=== PATIENT | female | born 1985 | race Caucasian/White ===

== ENCOUNTER 2016-09-24 10:22 | Emergency (ER) | payer OTHER, SELFPAY ==
[~2016-09-24 10:22] MED LIST: ACET50TA PO; ALBU20IN NEB; ALBU83IN INH; ALBUPOW9 XX; BACT2OIN12; CEFT500T PO; CEPH25SS PO; CEPH2CAP PO; DIPH50CA PO; DOXY75CA3 PO; EPIP0.3I2 INJ; ERYT250C11 PO; HIBI4LIQ EXT; IBUP-1114 PO; IBUP80TA PO; MOTR200T44 PO; MUPI2OI EXT; No Home Meds; PEPC40SU PO; PERC5TAB6 PO; PRED20TA PO; PRED50TA PO; PRENTAB74 PO; PRENTAB8 PO; PRENTAB9 PO; PROA1AER INH; PROM125TA IV; STUATAB PO; TOPICAL CREAM TOP; TYLE167L PO; TYLE325T5 PO; albuterol HFA INH; benadryl PO; ceftin PO; nebulizer NEB; senokot PO; zofran PO
[2016-09-24 11:08] LABS: CONTROL LINE HCG INT CTR LINE PRESENT
[2016-09-24] MEDS ORDERED: ONDANSETRON 4MG/2ML VIAL (J2405) As Ordered ONE (11:17)
[2016-09-24] MEDS ORDERED: MORPHINE 4 MG/ML 1ML SYRINGE As Ordered ONE (11:17)
[2016-09-24] MEDS ORDERED: ISOVUE-370 76% 100ML VIAL (Q9967) As Ordered ONE (11:24)
--- NOTE | 2016-09-24 11:30 | REP ---
Chest x-ray: Two views. History: Chest pain. Comparison chest x-rays from February 15, 2013. Findings: EKG monitoring electrodes overlie the chest. The lungs are well inflated and clear. Pleural angles are sharp. Heart size is normal. Pulmonary vasculature is not increased. No significant bony abnormality is seen. Impression: No active disease. Signed by Leonides Schaeffer MD 09/24/2016 11:22 A
--- NOTE | 2016-09-24 12:16 | REP ---
CT PULMONARY ANGIOGRAM: With IV contrast. HISTORY: Pleuritic chest pain, elevated D-dimer COMPARISON STUDIES: Comparison chest x-ray from earlier on today's date. February 25, [address] is reviewed. Contrast dose: 75 mL of Isovue [address] TECHNIQUE: Helical scanning is acquired and overlapping 1.5 mm and contiguous 3 mm axial images are reformatted. In addition, a 3D work station is deployed to generate thick slab maximum intensity projection images in sagittal and coronal imaging projections. CT PULMONARY ANGIOGRAPHIC FINDINGS: There is good opacification of the pulmonary arterial tree and there is no CT evidence of pulmonary embolism. The thoracic aorta enhances homogeneously and is normal in caliber and course. No evidence of dissection or aneurysm is seen. No hilar or mediastinal mass or adenopathy is seen. No pleural or pericardial effusion is seen. The lung bagley are clear. Maximal intensity projection images show no vessel cutoff or filling defect to suggest pulmonary thrombus. No pulmonary mass lesion infiltrate or atelectasis is seen. There is marked diffuse fatty infiltration in the liver. No adrenal lesion is seen. The visualized upper abdominal structures are otherwise unremarkable. No bony destructive lesion is seen. IMPRESSION: No CT evidence of pulmonary embolism. Marked diffuse fatty infiltration of the liver. Otherwise negative CT pulmonary angiogram. Signed by Leonides Schaeffer MD 09/24/2016 02:27 P
--- NOTE | 2016-09-24 12:58 | EDDOCDS ---
Physician Documentation [facility] Name: Genesis Quintanilla Age: 30 yrs Sex: Female : 1985 Arrival Date: 09/24/2016 Time: 10:22 Bed 5 Private MD: NO PRIMARY PHYSICIAN, . Disposition: 09/24/16 12:46 Discharged to Home/Self Care. Impression: Other chest pain. - Condition is Stable. - Discharge Instructions: Angina Pectoris, Nonspecific Chest Pain, Chest Wall Pain, Costochondritis. - Prescriptions for [place] 5- 325 mg Oral Tablet - take 1 tablet by ORAL route every 6 hours As needed MDD: 4 tabs; 6 tablet. - Medication Reconciliation, Local Pharmacy Hours form. - Follow up: Center - [facility]; When: 2 - 3 days. - Problem is new. - Symptoms have improved. Historical: - Allergies: Bees (Anaphylaxis); Clindamycin (Rash); Erythromycin (Rash); Latex; Naproxen (Unknown); PENICILLINS (Rash); SULFA (SULFONAMIDES) (Swelling); - Home Meds: 1. cpap nightly 2. pro-air 2 puff twice a day 3. albuterol sulfate 2.5 mg /3 mL (0.083 %) Nebulizer nebu 3 mL 3 times per day as needed - PMHx: angioedema; Asthma; Depression; hearing loss; MRSA; Sleep Apnea w/ CPAP; - PSHx: none; - Social history: Smoking status: Patient states was never smoker of tobacco. No barriers to communication noted, The patient speaks fluent Yoruba. - Family history: Not pertinent. - : The pt / caregiver states he / she is not on anticoagulants. Home medication list is obtained from the patient. - Exposure Risk Screening:: None identified. 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 5 in. (165.10 cm) (R); Pain 6/10; 11:20 BP 119 / 70 (auto/); js13 11:20 Pulse 78 MON; Resp 14; Pulse Ox 98% ; js13 11:35 BP 114 / 57 (auto/); js13 11:35 Pulse 60 MON; Resp 14; Pulse Ox 99% on R/A; js13 11:41 Pain 2/10; js13 11:50 BP 108 / 52 (auto/); js13 11:50 Pulse 68 MON; Resp 14; Pulse Ox 95% on R/A; js13 12:05 BP 105 / 58 (auto/); js13 12:05 Pulse 68 MON; Resp 14; Pulse Ox 97% on R/A; js13 12:20 BP 107 / 55 (auto/); js13 12:20 Pulse 58 MON; Resp 14; Pulse Ox 95% on R/A; js13 12:35 BP 107 / 62 (auto/); js13 12:35 Pulse 66 MON; Resp 14; Pulse Ox 95% on R/A; js13 12:50 BP 134 / 83 (auto/); js13 12:50 Pulse 58 MON; Resp 14; Temp 97.2(O); Pulse Ox 97% on R/A; Pain 2/10; js13 10:34 Body Mass Index 38.27 (104.33 kg, 165.10 cm) dem1 MDM: 10:25 ECG WITH READING ER PHYS+CARDIAG ordered. EDMS 10:28 IV Saline Lock ordered. sd1 10:29 Chest, 2 View (pa\E\lat) Ordered. EDMS 10:29 D-Dimer Quant Ordered. EDMS 10:55 HCG,Serum Qualitative Ordered. EDMS 11:14 D-Dimer Quant Reviewed. sd1 11:14 HCG,Serum Qualitative Reviewed. sd1 11:15 morphine 4 mg IVP every 15 minutes; Document pain score/vitals after each dose (Hold if sd1 SBP < 90mmHg) x2 ordered. 11:15 Ondansetron 4 mg IVP once ordered. sd1 11:17 CT Chest Angio R/O PE Ordered. EDMS 11:45 Financial registration complete. mm15 11:47 [facility] [place] was [place] into [employer] and attached to record. mm15 12:35 [facility] [place] ordered. sd1 Administered Medications: 11:22 Drug: morphine 4 mg [morphine 4 mg/mL intravenous cartridge (1 mL)] Route: IVP; Site: js13 left antecubital; 11:41 Follow up: Pain 2/10 Adult; Response: Confirmed pt not driving.; Pain is decreased js13 11:22 Drug: Ondansetron 4 mg Route: IVP; Site: left antecubital; js13 11:45 Follow up: Response: Nausea is resolved js13 Signatures: Dispatcher [employer] EDAlia Diamnod MD MD sd1 Ban Nance RN RN js13 Yonas Duarte mm15 The chart was reviewed and I authenticate all verbal orders and agree with the evaluation and treatment provided.Attachments: 11:47 [facility] Payment Agreement mm15 MTDD
--- NOTE | 2016-09-24 12:58 | EDDOCDS ---
Nurse's Notes [facility] Name: Genesis Quintanilla Age: 30 yrs Sex: Female : 1985 Arrival Date: 09/24/2016 Time: 10:22 Bed 5 Private MD: NO PRIMARY PHYSICIAN, . Diagnosis: Other chest pain Presentation: 09/24 10:25 Presenting complaint: EMS states: Patient states she had sudden onset of CP that js13 radiated down left arm. Pain is reproducible with palpation. Patient states she has a cough. 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 Suicide/Homicide risk assessment- the patient denies having any suicidal and/or homicidal ideations and does not present with any other emotional, behavioral or mental health complaints. 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 Transition of care: patient was not received from another setting of care. Care prior to arrival: See EMS report. Medications administered prior to arrival: ASA. 10:25 Method Of Arrival: Ambulance 13 10:25 Acuity: STEPHANY Level 2 js13 10:25 Adult Sepsis Screening: The patient does not have new or worsening altered mentation. js13 Patient's respiratory rate is less than 22. Systolic blood pressure is greater than 100. Patient has a qSOFA score of 0- Negative Sepsis Screen. Triage Assessment: 10:30 General: Appears in no apparent distress, Behavior is appropriate for age, cooperative. js13 Pain: Denies pain. Pt Declines HIV testing. Neurological: Level of Consciousness is awake, alert. Cardiovascular: Rhythm is sinus rhythm Chest pain is described as vague, radiates to left arm(s) episodes are intermittent last < 1 minute began 30 minutes prior to arrival. Respiratory: Airway is patent Respiratory effort is even, unlabored, Respiratory pattern is regular. Derm: Skin is pink, warm & dry. 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 cpap nightly 2. pro-air 2 puff twice a day 3. albuterol sulfate 2.5 mg /3 mL (0.083 %) Nebulizer nebu 3 mL 3 times per day as needed - PMHx: angioedema; Asthma; Depression; hearing loss; MRSA; Sleep Apnea w/ CPAP; - PSHx: none; - Social history: Smoking status: Patient states was never smoker of tobacco. No barriers to communication noted, The patient speaks fluent [place]. - Family history: Not pertinent. - : The pt / caregiver states he / she is not on anticoagulants. Home medication list is obtained from the patient. - Exposure Risk Screening:: None identified. Screenin:32 Screening information is obtained from the patient. Fall risk: No risks identified. js13 Assistance ADL's: requires no assistance with activities of daily living. Abuse/DV Screen: The patient / caregiver reports he/she is: not in a situation that causes fear, pain or injury. Nutritional screening: No deficits noted. Advance Directives: There is no active DNR order. home support is adequate. Assessment: 10:32 General: Appears in no apparent distress, Behavior is appropriate for age, cooperative. js13 Pain: Denies pain. Neurological: Level of Consciousness is awake, alert. Cardiovascular: Rhythm is sinus rhythm Chest pain is described as vague, radiates to left arm(s) episodes last < 1 minute. Respiratory: Airway is patent Respiratory effort is even, unlabored, Respiratory pattern is regular, symmetrical, Breath sounds are clear. Derm: Skin is pink, warm & dry. 11:41 General: Appears in no apparent distress, Behavior is appropriate for age, cooperative. js13 Neurological: Level of Consciousness is awake, alert. Cardiovascular: Rhythm is sinus rhythm Chest pain is described as vague, episodes last < 1 minute. Respiratory: No deficits noted. Airway is patent Respiratory effort is even, unlabored, Respiratory pattern is regular, symmetrical. Derm: Skin is pink, warm & dry. 12:30 Adult Sepsis Screening: The patient does not have new or worsening altered mentation. js13 Patient's respiratory rate is less than 22. Systolic blood pressure is greater than 100. Patient has a qSOFA score of 0- Negative Sepsis Screen. General: Appears in no apparent distress, Behavior is appropriate for age, cooperative. Pain: Denies pain. Neurological: Level of Consciousness is awake, alert. Cardiovascular: Rhythm is sinus rhythm Chest pain is described as vague. Respiratory: Airway is patent Respiratory effort is even, unlabored, Respiratory pattern is regular, symmetrical. Derm: Skin is pink, warm & dry. 12:42 General: Patient ambulated with no complaints.. js13 Vital Signs: 10:34 BP 125 / 76; Pulse 68; Resp 18; Temp 97.1(TE); Pulse Ox 98% on R/A; Weight 104.33 kg dem1 (R); Height 5 ft. 5 in. (165.10 cm) (R); Pain 6/10; 11:20 BP 119 / 70 (auto/); js13 11:20 Pulse 78 MON; Resp 14; Pulse Ox 98% ; js13 11:35 BP 114 / 57 (auto/); js13 11:35 Pulse 60 MON; Resp 14; Pulse Ox 99% on R/A; js13 11:41 Pain 2/10; js13 11:50 BP 108 / 52 (auto/); js13 11:50 Pulse 68 MON; Resp 14; Pulse Ox 95% on R/A; js13 12:05 BP 105 / 58 (auto/); js13 12:05 Pulse 68 MON; Resp 14; Pulse Ox 97% on R/A; js13 12:20 BP 107 / 55 (auto/); js13 12:20 Pulse 58 MON; Resp 14; Pulse Ox 95% on R/A; js13 12:35 BP 107 / 62 (auto/); js13 12:35 Pulse 66 MON; Resp 14; Pulse Ox 95% on R/A; js13 12:50 BP 134 / 83 (auto/); js13 12:50 Pulse 58 MON; Resp 14; Temp 97.2(O); Pulse Ox 97% on R/A; Pain 2/10; js13 10:34 Body Mass Index 38.27 (104.33 kg, 165.10 cm) [place] Vitals: 10:30 Log In Time N/A - ambulance arrival. js13 ED Course: 10:22 Patient visited by Gina Andre PCA. ar3 10:22 Patient moved to Waiting ar3 10:23 NO PRIMARY PHYSICIAN, . is Private Physician. ar3 10:23 Ban Nance,RN is Primary Nurse. ar3 10:23 Patient moved to 5 ar3 10:27 Triage Initiated js13 10:28 EKG done. (by ED staff). Reviewed by Alia Loving MD. dem1 10:32 The patient / caregiver is instructed regarding the plan of care and ED course. Cardiac js13 monitor on. Pulse ox on. NIBP on. 10:33 Patient visited by Ban Nance RN. js13 10:35 Patient visited by Steph Bowman. nb2 10:46 Alia Loving MD is Attending Physician. sd1 10:48 Patient visited by Alia Loving MD. sd1 10:53 D-Dimer Quant Sent. js13 10:53 Inserted saline lock: 20 gauge in left antecubital area and blood collected. The js13 patient tolerated the procedure well. by Subhash Medina RN. No procedures done that require assistance. 11:[address] ml6 11:39 Patient moved to 5 js13 11:42 Patient visited by Ban Nance RN. js13 11:47 [facility] Payment Agreement was scanned into [employer] and attached to record. mm15 12:00 Chest, 2 View (pa\E\lat) Returned. EDMS 12:30 Patient visited by Ban Nance RN. js13 12:40 CT Chest Angio R/O PE Returned. EDMS 12:46 [facility] is Referral Physician. sd1 12:50 Discontinued IV lock intact, bleeding controlled, pressure dressing applied, No js13 redness/swelling at site. Administered Medications: 11:22 Drug: morphine 4 mg [morphine 4 mg/mL intravenous cartridge (1 mL)] Route: IVP; Site: js13 left antecubital; 11:41 Follow up: Pain 2/10 Adult; Response: Confirmed pt not driving.; Pain is decreased js13 11:22 Drug: Ondansetron 4 mg Route: IVP; Site: left antecubital; js13 11:45 Follow up: Response: Nausea is resolved js13 Order Results: Lab Order: D-Dimer Quant; SPEC'M 09/24/16 10:52 Test: D-DIMER QUANT; Value: 618.7; Range: <500; Abnormal: Above high normal; Units: ng/ml; Status: F Lab Order: HCG,Serum Qualitative; SPEC'M 09/24/16 10:52 Test: HCG, SERUM QUALITATIVE; Value: NEGATIVE; Range: NEGATIVE; Status: F Radiology Order: Chest, 2 View (pa\E\lat) Test: Chest, 2 View (pa\E\lat) REASON FOR EXAMINATION: Chest Pain; Chest x-ray: Two views.; ; History: Chest pain.; ; Comparison chest x-rays from February 15, 2013.; ; Findings: EKG monitoring electrodes overlie the chest. The lungs are well; inflated and clear. Pleural angles are sharp. Heart size is normal. Pulmonary; vasculature is not increased. No significant bony abnormality is seen.; ; Impression:; ; No active disease.; ; ; Signed by; Leonides Schaeffer MD 09/24/2016 11:22 A; Radiology Order: CT Chest Angio R/O PE Test: CT Chest Angio R/O PE REASON FOR EXAMINATION: pleuritic chest pain elevated d-dimer; CT PULMONARY ANGIOGRAM: With IV contrast.; ; HISTORY: Pleuritic chest pain, elevated D-dimer; ; COMPARISON STUDIES: Comparison chest x-ray from earlier on today's date. February 252012 prior chest CT is reviewed.; ; Contrast dose: 75 mL of Isovue 370 are administered intravenously.; ; CT TECHNIQUE: Helical scanning is acquired and overlapping 1.5 mm and contiguous; 3 mm axial images are reformatted. In addition, a 3D work station is deployed to; generate thick slab maximum intensity projection images in sagittal and coronal; imaging projections.; ; CT PULMONARY ANGIOGRAPHIC FINDINGS: There is good opacification of the pulmonary; arterial tree and there is no CT evidence of pulmonary embolism. The thoracic; aorta enhances homogeneously and is normal in caliber and course. No evidence of; dissection or aneurysm is seen. No hilar or mediastinal mass or adenopathy is; seen. No pleural or pericardial effusion is seen. The lung bagley are clear.; Maximal intensity projection images show no vessel cutoff or filling defect to; suggest pulmonary thrombus. No pulmonary mass lesion infiltrate or atelectasis; is seen.; ; There is marked diffuse fatty infiltration in the liver. No adrenal lesion is; seen. The visualized upper abdominal structures are otherwise unremarkable. No; bony destructive lesion is seen.; ; IMPRESSION:; No CT evidence of pulmonary embolism. Marked diffuse fatty infiltration of the; liver. Otherwise negative CT pulmonary angiogram.; ; ; ; ; ; ; Unreviewed; Outcome: 12:46 Discharge ordered by Provider. sd1 12:50 Discharge Assessment: Patient awake, alert and oriented x 3. No cognitive and/or js13 functional deficits noted. Patient verbalized understanding of disposition instructions. patient administered narcotics - yes. Pt provided with safe discharge. The following High Risk Discharge criteria are identified: None. Discharged to home ambulatory, with significant other. Condition: stable. Discharge instructions given to patient, Instructed on discharge instructions, follow up and referral plans. medication usage, Demonstrated understanding of instructions, medications, Pt was receptive of discharge instructions/ teaching. Prescriptions given X 1. CT Study completed. Property :Personal belongings accompany Pt. 12:57 Patient left the ED. js13 Signatures: Dispatcher [employer] EDMS Alia Loving MD MD sd1 Frank Watts, RN RN ml6 Gina Andre, WINE CONSULTANT WINE CONSULTANT ar3 Willian Lopez1 Ban Nance,RN RN js13 Yonas Duarte mm15 Steph Bowman nb2 Corrections: (The following items were deleted from the chart) 11:22 10:53 Inserted saline lock: 20 gauge in right forearm and blood collected. The patient js13 tolerated the procedure well. by Subhash Medina RN js13 JEEVAN
--- NOTE | 2016-09-24 19:07 | ECGEPIP ---
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
--- NOTE | 2016-09-26 13:59 | EDDOCDS ---
Physician Documentation [facility] Name: Genesis Quintanilla Age: 30 yrs Sex: Female : 1985 Arrival Date: 09/24/2016 Time: 10:22 Bed 5 Private MD: NO PRIMARY PHYSICIAN, . Disposition: 09/24/16 12:46 Discharged to Home/Self Care. Impression: Other chest pain. - Condition is Stable. - Discharge Instructions: Angina Pectoris, Nonspecific Chest Pain, Chest Wall Pain, Costochondritis. - Prescriptions for [place] 5- 325 mg Oral Tablet - take 1 tablet by ORAL route every 6 hours As needed MDD: 4 tabs; 6 tablet. - Medication Reconciliation, Local Pharmacy Hours form. - Follow up: Center - [facility]; When: 2 - 3 days. - Problem is new. - Symptoms have improved. Historical: - Allergies: Bees (Anaphylaxis); Clindamycin (Rash); Erythromycin (Rash); Latex; Naproxen (Unknown); PENICILLINS (Rash); SULFA (SULFONAMIDES) (Swelling); - Home Meds: 1. cpap nightly 2. pro-air 2 puff twice a day 3. albuterol sulfate 2.5 mg /3 mL (0.083 %) Nebulizer nebu 3 mL 3 times per day as needed - PMHx: angioedema; Asthma; Depression; hearing loss; MRSA; Sleep Apnea w/ CPAP; - PSHx: none; - Social history: Smoking status: Patient states was never smoker of tobacco. No barriers to communication noted, The patient speaks fluent Urdu. - Family history: Not pertinent. - : The pt / caregiver states he / she is not on anticoagulants. Home medication list is obtained from the patient. - Exposure Risk Screening:: None identified. 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 5 in. (165.10 cm) (R); Pain 6/10; 11:20 BP 119 / 70 (auto/); js13 11:20 Pulse 78 MON; Resp 14; Pulse Ox 98% ; js13 11:35 BP 114 / 57 (auto/); js13 11:35 Pulse 60 MON; Resp 14; Pulse Ox 99% on R/A; js13 11:41 Pain 2/10; js13 11:50 BP 108 / 52 (auto/); js13 11:50 Pulse 68 MON; Resp 14; Pulse Ox 95% on R/A; js13 12:05 BP 105 / 58 (auto/); js13 12:05 Pulse 68 MON; Resp 14; Pulse Ox 97% on R/A; js13 12:20 BP 107 / 55 (auto/); js13 12:20 Pulse 58 MON; Resp 14; Pulse Ox 95% on R/A; js13 12:35 BP 107 / 62 (auto/); js13 12:35 Pulse 66 MON; Resp 14; Pulse Ox 95% on R/A; js13 12:50 BP 134 / 83 (auto/); js13 12:50 Pulse 58 MON; Resp 14; Temp 97.2(O); Pulse Ox 97% on R/A; Pain 2/10; js13 10:34 Body Mass Index 38.27 (104.33 kg, 165.10 cm) dem1 MDM: 10:25 ECG WITH READING ER PHYS+CARDIAG ordered. EDMS 10:28 IV Saline Lock ordered. sd1 10:29 Chest, 2 View (pa\E\lat) Ordered. EDMS 10:29 D-Dimer Quant Ordered. EDMS 10:55 HCG,Serum Qualitative Ordered. EDMS 11:14 D-Dimer Quant Reviewed. sd1 11:14 HCG,Serum Qualitative Reviewed. sd1 11:15 morphine 4 mg IVP every 15 minutes; Document pain score/vitals after each dose (Hold if sd1 SBP < 90mmHg) x2 ordered. 11:15 Ondansetron 4 mg IVP once ordered. sd1 11:17 CT Chest Angio R/O PE Ordered. EDMS 11:45 Financial registration complete. mm15 11:47 [facility] Payment Agreement was scanned into [employer] and attached to record. mm15 12:35 [facility] [place]. Nursing Order ordered. sd1 17:12 T-Sheet-- Draft Copy was scanned into [employer] and attached to record. klr 17:14 ECG/EKG was scanned into [employer] and attached to record. klr Administered Medications: 11:22 Drug: morphine 4 mg [morphine 4 mg/mL intravenous cartridge (1 mL)] Route: IVP; Site: js13 left antecubital; 11:41 Follow up: Pain 2/10 Adult; Response: Confirmed pt not driving.; Pain is decreased js13 11:22 Drug: Ondansetron 4 mg Route: IVP; Site: left antecubital; js13 11:45 Follow up: Response: Nausea is resolved js13 Signatures: Dispatcher [employer] EDAlia Diamond MD MD sd1 Ban NanceRN RN js13 Yonas Duarte mm15 Leslie Delgado klr The chart was reviewed and I authenticate all verbal orders and agree with the evaluation and treatment provided.Attachments: 11:47 [facility] Payment Agreement mm15 17:12 T-Sheet-- Draft Copy klr 17:14 ECG/EKG klr Chart Complete MTDD
--- NOTE | 2016-09-26 13:59 | EDDOCDS ---
Nurse's Notes [facility] Name: Genesis Quintanilla Age: 30 yrs Sex: Female : 1985 Arrival Date: 09/24/2016 Time: 10:22 Bed 5 Private MD: NO PRIMARY PHYSICIAN, . Diagnosis: Other chest pain Presentation: 09/24 10:25 Presenting complaint: EMS states: Patient states she had sudden onset of CP that js13 radiated down left arm. Pain is reproducible with palpation. Patient states she has a cough. 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 Suicide/Homicide risk assessment- the patient denies having any suicidal and/or homicidal ideations and does not present with any other emotional, behavioral or mental health complaints. Status: Patient is not a customer service advocate or dependent. Transition of care: patient was not received from another setting of care. Care prior to arrival: See EMS report. Medications administered prior to arrival: ASA. 10:25 Method Of Arrival: Ambulance 13 10:25 Acuity: STEPHANY Level 2 js13 10:25 Adult Sepsis Screening: The patient does not have new or worsening altered mentation. js13 Patient's respiratory rate is less than 22. Systolic blood pressure is greater than 100. Patient has a qSOFA score of 0- Negative Sepsis Screen. Triage Assessment: 10:30 General: Appears in no apparent distress, Behavior is appropriate for age, cooperative. js13 Pain: Denies pain. Pt Declines HIV testing. Neurological: Level of Consciousness is awake, alert. Cardiovascular: Rhythm is sinus rhythm Chest pain is described as vague, radiates to left arm(s) episodes are intermittent last < 1 minute began 30 minutes prior to arrival. Respiratory: Airway is patent Respiratory effort is even, unlabored, Respiratory pattern is regular. Derm: Skin is pink, warm & dry. 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 cpap nightly 2. pro-air 2 puff twice a day 3. albuterol sulfate 2.5 mg /3 mL (0.083 %) Nebulizer nebu 3 mL 3 times per day as needed - PMHx: angioedema; Asthma; Depression; hearing loss; MRSA; Sleep Apnea w/ CPAP; - PSHx: none; - Social history: Smoking status: Patient states was never smoker of tobacco. No barriers to communication noted, The patient speaks fluent Bermudian. - Family history: Not pertinent. - : The pt / caregiver states he / she is not on anticoagulants. Home medication list is obtained from the patient. - Exposure Risk Screening:: None identified. Screenin:32 Screening information is obtained from the patient. Fall risk: No risks identified. js13 Assistance ADL's: requires no assistance with activities of daily living. Abuse/DV Screen: The patient / caregiver reports he/she is: not in a situation that causes fear, pain or injury. Nutritional screening: No deficits noted. Advance Directives: There is no active DNR order. home support is adequate. Assessment: 10:32 General: Appears in no apparent distress, Behavior is appropriate for age, cooperative. js13 Pain: Denies pain. Neurological: Level of Consciousness is awake, alert. Cardiovascular: Rhythm is sinus rhythm Chest pain is described as vague, radiates to left arm(s) episodes last < 1 minute. Respiratory: Airway is patent Respiratory effort is even, unlabored, Respiratory pattern is regular, symmetrical, Breath sounds are clear. Derm: Skin is pink, warm & dry. 11:41 General: Appears in no apparent distress, Behavior is appropriate for age, cooperative. js13 Neurological: Level of Consciousness is awake, alert. Cardiovascular: Rhythm is sinus rhythm Chest pain is described as vague, episodes last < 1 minute. Respiratory: No deficits noted. Airway is patent Respiratory effort is even, unlabored, Respiratory pattern is regular, symmetrical. Derm: Skin is pink, warm & dry. 12:30 Adult Sepsis Screening: The patient does not have new or worsening altered mentation. js13 Patient's respiratory rate is less than 22. Systolic blood pressure is greater than 100. Patient has a qSOFA score of 0- Negative Sepsis Screen. General: Appears in no apparent distress, Behavior is appropriate for age, cooperative. Pain: Denies pain. Neurological: Level of Consciousness is awake, alert. Cardiovascular: Rhythm is sinus rhythm Chest pain is described as vague. Respiratory: Airway is patent Respiratory effort is even, unlabored, Respiratory pattern is regular, symmetrical. Derm: Skin is pink, warm & dry. 12:42 General: Patient ambulated with no complaints.. js13 Vital Signs: 10:34 BP 125 / 76; Pulse 68; Resp 18; Temp 97.1(TE); Pulse Ox 98% on R/A; Weight 104.33 kg dem1 (R); Height 5 ft. 5 in. (165.10 cm) (R); Pain 6/10; 11:20 BP 119 / 70 (auto/); js13 11:20 Pulse 78 MON; Resp 14; Pulse Ox 98% ; js13 11:35 BP 114 / 57 (auto/); js13 11:35 Pulse 60 MON; Resp 14; Pulse Ox 99% on R/A; js13 11:41 Pain 2/10; js13 11:50 BP 108 / 52 (auto/); js13 11:50 Pulse 68 MON; Resp 14; Pulse Ox 95% on R/A; js13 12:05 BP 105 / 58 (auto/); js13 12:05 Pulse 68 MON; Resp 14; Pulse Ox 97% on R/A; js13 12:20 BP 107 / 55 (auto/); js13 12:20 Pulse 58 MON; Resp 14; Pulse Ox 95% on R/A; js13 12:35 BP 107 / 62 (auto/); js13 12:35 Pulse 66 MON; Resp 14; Pulse Ox 95% on R/A; js13 12:50 BP 134 / 83 (auto/); js13 12:50 Pulse 58 MON; Resp 14; Temp 97.2(O); Pulse Ox 97% on R/A; Pain 2/10; js13 10:34 Body Mass Index 38.27 (104.33 kg, 165.10 cm) [facility] Vitals: 10:30 Log In Time N/A - ambulance arrival. js13 ED Course: 10:22 Patient visited by Gina Andre PCA. ar3 10:22 Patient moved to Waiting ar3 10:23 NO PRIMARY PHYSICIAN, . is Private Physician. ar3 10:23 Ban Nance,RN is Primary Nurse. ar3 10:23 Patient moved to 5 ar3 10:27 Triage Initiated js13 10:28 EKG done. (by ED staff). Reviewed by Alia Loving MD. dem1 10:32 The patient / caregiver is instructed regarding the plan of care and ED course. Cardiac js13 monitor on. Pulse ox on. NIBP on. 10:33 Patient visited by Ban Nance RN. js13 10:35 Patient visited by Steph Bowman. nb2 10:46 Alia Loving MD is Attending Physician. sd1 10:48 Patient visited by Alia Loving MD. sd1 10:53 D-Dimer Quant Sent. js13 10:53 Inserted saline lock: 20 gauge in left antecubital area and blood collected. The js13 patient tolerated the procedure well. by Subhash Medina RN. No procedures done that require assistance. 11:[address] ml6 11:39 Patient moved to 5 js13 11:42 Patient visited by Ban Nance RN. js13 11:47 [facility] Payment Agreement was scanned into [employer] and attached to record. mm15 12:00 Chest, 2 View (pa\E\lat) Returned. EDMS 12:30 Patient visited by Ban Nance RN. js13 12:40 CT Chest Angio R/O PE Returned. EDMS 12:46 [facility] is Referral Physician. sd1 12:50 Discontinued IV lock intact, bleeding controlled, pressure dressing applied, No js13 redness/swelling at site. 17:12 T-Sheet-- Draft Copy was scanned into [employer] and attached to record. klr 17:14 ECG/EKG was scanned into [employer] and attached to record. klr 19:46 EKG-ADULT Returned. EDMS Administered Medications: 11:22 Drug: morphine 4 mg [morphine 4 mg/mL intravenous cartridge (1 mL)] Route: IVP; Site: js13 left antecubital; 11:41 Follow up: Pain 2/10 Adult; Response: Confirmed pt not driving.; Pain is decreased js13 11:22 Drug: Ondansetron 4 mg Route: IVP; Site: left antecubital; js13 11:45 Follow up: Response: Nausea is resolved js13 Order Results: Lab Order: D-Dimer Quant; SPEC'M 09/24/16 10:52 Test: D-DIMER QUANT; Value: 618.7; Range: <500; Abnormal: Above high normal; Units: ng/ml; Status: F Lab Order: HCG,Serum Qualitative; SPEC'M 09/24/16 10:52 Test: HCG, SERUM QUALITATIVE; Value: NEGATIVE; Range: NEGATIVE; Status: F Radiology Order: EKG-ADULT Test: EKG-ADULT REASON FOR EXAMINATION: Chest Pain; Stationary ECG Study; [facility] - ED; ; Test Date: 2016-09-24; Pat Name: GENESIS QUINTANILLA Department:; Room: -; Gender: F [place] Man: lou; : 1985 Requested By: Alia Loving; Order Number: [id number] Reading MD: Alia Loving; Measurements; Intervals [place]; Rate: 59 P: 19; TN: 151 QRS: 48; QRSD: 110 T: 19; QT: 390; QTc: 388; Interpretive Statements; SINUS BRADYCARDIA; ?POSSIBLE PRIOR INFERIOR VT; DECREASED RATE 02/15/16; Electronically Signed On 09-24-2016 19:06:54 EST by Alia Loving; Radiology Order: Chest, 2 View (pa\E\lat) Test: Chest, 2 View (pa\E\lat) REASON FOR EXAMINATION: Chest Pain; Chest x-ray: Two views.; ; History: Chest pain.; ; Comparison chest x-rays from February 15, 2013.; ; Findings: EKG monitoring electrodes overlie the chest. The lungs are well; inflated and clear. Pleural angles are sharp. Heart size is normal. Pulmonary; vasculature is not increased. No significant bony abnormality is seen.; ; Impression:; ; No active disease.; ; ; Signed by; Leonides Schaeffer MD 09/24/2016 11:22 A; Radiology Order: CT Chest Angio R/O PE Test: CT Chest Angio R/O PE REASON FOR EXAMINATION: pleuritic chest pain elevated d-dimer; CT PULMONARY ANGIOGRAM: With IV contrast.; ; HISTORY: Pleuritic chest pain, elevated D-dimer; ; COMPARISON STUDIES: Comparison chest x-ray from earlier on today's date. February 252012 prior chest CT is reviewed.; ; Contrast dose: 75 mL of Isovue 370 are administered intravenously.; ; CT TECHNIQUE: Helical scanning is acquired and overlapping 1.5 mm and contiguous; 3 mm axial images are reformatted. In addition, a 3D work station is deployed to; generate thick slab maximum intensity projection images in sagittal and coronal; imaging projections.; ; CT PULMONARY ANGIOGRAPHIC FINDINGS: There is good opacification of the pulmonary; arterial tree and there is no CT evidence of pulmonary embolism. The thoracic; aorta enhances homogeneously and is normal in caliber and course. No evidence of; dissection or aneurysm is seen. No hilar or mediastinal mass or adenopathy is; seen. No pleural or pericardial effusion is seen. The lung bagley are clear.; Maximal intensity projection images show no vessel cutoff or filling defect to; suggest pulmonary thrombus. No pulmonary mass lesion infiltrate or atelectasis; is seen.; ; There is marked diffuse fatty infiltration in the liver. No adrenal lesion is; seen. The visualized upper abdominal structures are otherwise unremarkable. No; bony destructive lesion is seen.; ; IMPRESSION:; ; No CT evidence of pulmonary embolism. Marked diffuse fatty infiltration of the; liver. Otherwise negative CT pulmonary angiogram.; ; ; ; ; Signed by; Leonides Schaeffer MD 09/24/2016 02:27 P; Outcome: 12:46 Discharge ordered by Provider. sd1 12:50 Discharge Assessment: Patient awake, alert and oriented x 3. No cognitive and/or js13 functional deficits noted. Patient verbalized understanding of disposition instructions. patient administered narcotics - yes. Pt provided with safe discharge. The following High Risk Discharge criteria are identified: None. Discharged to home ambulatory, with significant other. Condition: stable. Discharge instructions given to patient, Instructed on discharge instructions, follow up and referral plans. medication usage, Demonstrated understanding of instructions, medications, Pt was receptive of discharge instructions/ teaching. Prescriptions given X 1. CT Study completed. Property :Personal belongings accompany Pt. 12:57 Patient left the ED. js13 Signatures: Dispatcher [employer] EDMS Alia Loving MD MD sd1 Frank Watts, RN RN ml6 Gina Andre, INFORMATICS ANALYST INFORMATICS ANALYST ar3 Willian Lopez dem1 Ban Nance,EBENEZER RN js13 Yonas Duarte mm15 Leslie Delgado Nicole nb2 Corrections: (The following items were deleted from the chart) 11:22 10:53 Inserted saline lock: 20 gauge in right forearm and blood collected. The patient js13 tolerated the procedure well. by Subhash Medina RN js13 Chart Complete MTDD
--- NOTE | 2016-09-26 13:59 | EDDOCDS ---
Physician Documentation [facility] Name: Genesis Quintanilla Age: 30 yrs Sex: Female : 1985 Arrival Date: 09/24/2016 Time: 10:22 Bed 5 Private MD: NO PRIMARY PHYSICIAN, . Disposition: 09/24/16 12:46 Discharged to Home/Self Care. Impression: Other chest pain. - Condition is Stable. - Discharge Instructions: Angina Pectoris, Nonspecific Chest Pain, Chest Wall Pain, Costochondritis. - Prescriptions for Clif[place] 5- 325 mg Oral Tablet - take 1 tablet by ORAL route every 6 hours As needed MDD: 4 tabs; 6 tablet. - Medication Reconciliation, Local Pharmacy Hours form. - Follow up: Center - [facility]; When: 2 - 3 days. - Problem is new. - Symptoms have improved. Historical: - Allergies: Bees (Anaphylaxis); Clindamycin (Rash); Erythromycin (Rash); Latex; Naproxen (Unknown); PENICILLINS (Rash); SULFA (SULFONAMIDES) (Swelling); - Home Meds: 1. cpap nightly 2. pro-air 2 puff twice a day 3. albuterol sulfate 2.5 mg /3 mL (0.083 %) Nebulizer nebu 3 mL 3 times per day as needed - PMHx: angioedema; Asthma; Depression; hearing loss; MRSA; Sleep Apnea w/ CPAP; - PSHx: none; - Social history: Smoking status: Patient states was never smoker of tobacco. No barriers to communication noted, The patient speaks fluent Czech. - Family history: Not pertinent. - : The pt / caregiver states he / she is not on anticoagulants. Home medication list is obtained from the patient. - Exposure Risk Screening:: None identified. 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 5 in. (165.10 cm) (R); Pain 6/10; 11:20 BP 119 / 70 (auto/); js13 11:20 Pulse 78 MON; Resp 14; Pulse Ox 98% ; js13 11:35 BP 114 / 57 (auto/); js13 11:35 Pulse 60 MON; Resp 14; Pulse Ox 99% on R/A; js13 11:41 Pain 2/10; js13 11:50 BP 108 / 52 (auto/); js13 11:50 Pulse 68 MON; Resp 14; Pulse Ox 95% on R/A; js13 12:05 BP 105 / 58 (auto/); js13 12:05 Pulse 68 MON; Resp 14; Pulse Ox 97% on R/A; js13 12:20 BP 107 / 55 (auto/); js13 12:20 Pulse 58 MON; Resp 14; Pulse Ox 95% on R/A; js13 12:35 BP 107 / 62 (auto/); js13 12:35 Pulse 66 MON; Resp 14; Pulse Ox 95% on R/A; js13 12:50 BP 134 / 83 (auto/); js13 12:50 Pulse 58 MON; Resp 14; Temp 97.2(O); Pulse Ox 97% on R/A; Pain 2/10; js13 10:34 Body Mass Index 38.27 (104.33 kg, 165.10 cm) dem1 MDM: 10:25 ECG WITH READING ER PHYS+CARDIAG ordered. EDMS 10:28 IV Saline Lock ordered. sd1 10:29 Chest, 2 View (pa\E\lat) Ordered. EDMS 10:29 D-Dimer Quant Ordered. EDMS 10:55 HCG,Serum Qualitative Ordered. EDMS 11:14 D-Dimer Quant Reviewed. sd1 11:14 HCG,Serum Qualitative Reviewed. sd1 11:15 morphine 4 mg IVP every 15 minutes; Document pain score/vitals after each dose (Hold if sd1 SBP < 90mmHg) x2 ordered. 11:15 Ondansetron 4 mg IVP once ordered. sd1 11:17 CT Chest Angio R/O PE Ordered. EDMS 11:45 Financial registration complete. mm15 11:47 [facility] Payment Agreement was scanned into [employer] and attached to record. mm15 12:35 [facility] [place]. Nursing Order ordered. sd1 17:12 T-Sheet-- Draft Copy was scanned into [employer] and attached to record. klr 17:14 ECG/EKG was scanned into [employer] and attached to record. klr Administered Medications: 11:22 Drug: morphine 4 mg [morphine 4 mg/mL intravenous cartridge (1 mL)] Route: IVP; Site: js13 left antecubital; 11:41 Follow up: Pain 2/10 Adult; Response: Confirmed pt not driving.; Pain is decreased js13 11:22 Drug: Ondansetron 4 mg Route: IVP; Site: left antecubital; js13 11:45 Follow up: Response: Nausea is resolved js13 Signatures: Dispatcher [employer] EDAlia Diamond MD MD sd1 Ban NanceRN RN js13 Yonas Duarte mm15 Leslie Delagdo klr The chart was reviewed and I authenticate all verbal orders and agree with the evaluation and treatment provided.Attachments: 11:47 [facility] Payment Agreement mm15 17:12 T-Sheet-- Draft Copy klr 17:14 ECG/EKG klr Chart Complete MTDD
== END 2016-09-24 12:57 | disposition home or self-care (01) ==
LOC: M ED 10:22
DX: R07.9 Chest pain, unspecified (principal); J45.909 Unspecified asthma, uncomplicated; F32.9 Major depressive disorder, single episode, unspecified; G47.30 Sleep apnea, unspecified; H91.90 Unspecified hearing loss, unspecified ear; Z79.51 Long term (current) use of inhaled steroids; Z88.0 Allergy status to penicillin; Z88.1 Allergy status to other antibiotic agents; Z88.2 Allergy status to sulfonamides; Z88.6 Allergy status to analgesic agent; Z91.040 Latex allergy status; Z91.030 Bee allergy status
CPT/HCPCS: 36415; 71020; 71275; 84703; 85379; 93005; 96374; 96375; 99285; J2405; Q9967

== ENCOUNTER 2016-10-09 22:27 | Emergency (ER) | payer SELFPAY ==
--- NOTE | 2016-10-10 06:16 | ECGEPIP ---
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
== END 2016-10-10 00:41 | disposition left against medical advice (07) ==
LOC: M ED 22:27
DX: R07.9 Chest pain, unspecified (principal); Z88.0 Allergy status to penicillin; Z88.2 Allergy status to sulfonamides; Z88.8 Allergy status to other drugs, medicaments and biological substances; Z88.1 Allergy status to other antibiotic agents; Z91.040 Latex allergy status; Z91.030 Bee allergy status

== ENCOUNTER 2016-10-10 11:30 | Emergency (ER) | payer OTHER, SELFPAY ==
[2016-10-10 12:22] LABS: BASO % 0.7 % (0.0-1.0); EOS # 0.2 K/mm3 (0.0-0.50); EOS % 3.8 % (0.0-3.0); LARGE UNSTAINED CELL # 0.2 K/mm3 (0.0-0.4); LARGE UNSTAINED CELL % 2.7 % (0.0-4.0); LYMPH # 1.8 K/mm3 (1.5-4.5); LYMPH % 28.5 % (24.0-44.0); MEAN CORPUSCULAR HGB CONC 33.4 g/dl (32.0-36.5); MONO # 0.4 K/mm3 (0.0-0.8); MONO % 6.9 % (0.0-5.0); NEUTROPHILS # 3.3 K/mm3 (1.8-7.7); NEUTROPHILS % 57.5 % (36.0-66.0); PLATELET COUNT, AUTOMATED 222 k/mm3 (150-450); RED CELL DISTRIBUTION WIDTH 14.8 % (11.5-14.5); WHITE BLOOD COUNT 5.7 K/mm3 (4.0-10.0)
[2016-10-10] MEDS ORDERED: METOCLOPRAMIDE INJ 10MG/2ML VIAL (J2765) As Ordered ONE (12:28)
[2016-10-10] MEDS ORDERED: diphenhydrAMINE INJ 50MG/ML VIAL (J1200) As Ordered ONE (12:29)
[2016-10-10 12:33] LABS: CONTROL LINE HCG INT CTR LINE PRESENT
[2016-10-10 12:40] LABS: ALBUMIN 3.4 GM/DL (3.2-5.2); ALBUMIN/GLOBULIN RATIO 0.81 (1.00-1.93); ALKALINE PHOSPHATASE 102 U/L (45-117); ALT/SGPT 44 U/L (12-78); ANION GAP 8 MEQ/L (8-16); AST/SGOT 42 U/L (15-37); BILIRUBIN,DIRECT < 0.1 MG/DL (0.0-0.2); BILIRUBIN,TOTAL 0.3 MG/DL (0.2-1.0); BLOOD UREA NITROGEN 13 MG/DL (7-18); CALCIUM LEVEL 8.7 MG/DL (8.5-10.1); CARBON DIOXIDE LEVEL 25 MEQ/L (21-32); CHLORIDE LEVEL 108 MEQ/L (98-107); CREATININE FOR GFR 0.86 MG/DL (0.55-1.02); GLOMERULAR FILTRATION RATE > 60.0 (>60); GLUCOSE, FASTING 125 MG/DL (70-105); POTASSIUM SERUM 3.9 MEQ/L (3.5-5.1); SODIUM LEVEL 141 MEQ/L (136-145); TOTAL PROTEIN 7.6 GM/DL (6.4-8.2)
--- NOTE | 2016-10-10 12:55 | REP ---
CT Head without contrast HISTORY: Paresthesias COMPARISON: 02/25/2013 There is no intraparenchymal hemorrhage, acute infarct, mass or midline shift. The ventricular system is normal in appearance. There is no extra cerebral collection. There is no fracture. The visualized sinuses are clear. IMPRESSION: There is no intracranial lesion. Signed by Giovanni Paz MD 10/10/2016 12:47 P
--- NOTE | 2016-10-10 13:12 | REP ---
Clinical: Pleuritic chest pain . Comparison: 09/24/2016 . Technique: PA and lateral. Findings: The mediastinum and cardiac silhouette are normal. The lung bagley are clear and without acute consolidation, effusion, or pneumothorax. The skeletal structures are intact and normal. Impression: 1. No acute cardiopulmonary process. Signed by Poncho Valencia MD 10/10/2016 01:03 P
--- NOTE | 2016-10-10 15:05 | REP ---
MRI BRAIN WITHOUT CONTRAST: HISTORY: Paresthesias. COMPARISON: 05/06/2011. There are no areas of abnormal signal intensity in the brain. There is no intraparenchymal hemorrhage, infarct, mass or midline shift. The ventricular system is normal in appearance. There is no extracerebral collection. The visualized sinuses are clear. IMPRESSION: There is no intracranial lesion. Signed by Giovanni Paz MD 10/10/2016 03:09 P
--- NOTE | 2016-10-10 15:06 | REP ---
MRA BRAIN WITHOUT CONTRAST: HISTORY: Paresthesias. 3D [id number] MR angiography was performed at the level of the [place]. There is no aneurysm, arteriovenous malformation, or atherosclerotic lesion. Major intracranial vessels are patent. The vertebral arteries are equal in size. IMPRESSION: Normal MRA brain. Signed by Giovanni Paz MD 10/10/2016 03:09 P
[2016-10-10] MEDS ORDERED: PERCOCET 5MG/325MG TAB As Ordered ONE (15:18)
--- NOTE | 2016-10-10 16:12 | EDDOCDS ---
Physician Documentation [facility] Name: Genesis Quintanilla Age: 30 yrs Sex: Female : 1985 Arrival Date: 10/10/2016 Time: 11:30 Bed 15 Private MD: [facility] [place] - Adults Disposition: 10/10/16 15:30 Discharged to Home/Self Care. Impression: Migraine - complex. - Condition is Stable. - Discharge Instructions: Migraine Headache. - Medication Reconciliation, Local Pharmacy Hours form. - Follow up: Center - Adults [facility]; When: Tomorrow. Follow up: [facility]; When: Call to arrange an appointment. - Problem is new. - Symptoms are resolved. Historical: - Allergies: Bees (Anaphylaxis); Clindamycin (Rash); Erythromycin (Rash); Latex; Naproxen (Unknown); PENICILLINS (Rash); SULFA (SULFONAMIDES) (Swelling); - Home Meds: 1. aspirin 81 mg Oral tab 2 tabs once daily (Last dose: 10/10/2016 07:00) - PMHx: angioedema; Asthma; Depression; hearing loss; MRSA; Sleep Apnea w/ CPAP; - PSHx: Tubal ligation; - Social history: Smoking status: Patient uses tobacco products, light tobacco smoker. No barriers to communication noted, Speaks appropriately for age. - Family history: No immediate family members are acutely ill. - : The pt / caregiver states he / she is not on anticoagulants. Home medication list is obtained from the patient. - Exposure Risk Screening:: None identified. 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 6 in. (167.64 cm); Pain 10/10; 16:11 BP 129 / 66; Pulse 89; Resp 18; Temp 97.1; Pulse Ox 98% ; Pain 5/10; hs1 11:34 Body Mass Index 35.51 (99.79 kg, 167.64 cm) jrd MDM: 11:42 ECG WITH READING ER PHYS+CARDIAG ordered. EDMS 11:53 IV Saline Lock ordered. sd1 11:54 Basic Metabolic Profile Ordered. EDMS 11:54 CBC with Diff Ordered. EDMS 11:54 Liver Profile Ordered. EDMS 11:54 HCG,Serum Qualitative Ordered. EDMS 11:55 Chest, 2 View (pa\E\lat) Ordered. EDMS 11:55 CT Head Without Contrast Ordered. EDMS 12:06 Financial registration complete. lg 12:12 [facility] Payment Agreement was scanned into [employer] and attached to record. lg 12:13 Metoclopramide 10 mg IV at 40 mg/hr once over 15 mins ordered. sd1 12:13 diphenhydrAMINE 50 mg IVP once ordered. sd1 12:13 NS 0.9% 1000 ml IV at bolus once ordered. sd1 12:37 CBC with Diff Reviewed. sd1 12:37 HCG,Serum Qualitative Reviewed. sd1 12:46 Basic Metabolic Profile Reviewed. sd1 12:46 Liver Profile Reviewed. sd1 12:46 HCG,Serum Qualitative Reviewed. sd1 13:07 MRI Screening Tool - Place on chart, inform RN ordered. sd1 13:08 -MRA-Brain without contrast Ordered. EDMS 13:08 -MRI-Brain without Ordered. EDMS 14:19 MRI Screening Tool - Place on chart, inform RN complete. mt4 14:54 REGULAR+DIET ordered. EDMS 15:05 oxyCODONE-acetaminophen 5 mg-325 mg 1 tabs PO once ordered. sd1 Administered Medications: 12:38 Not Given (Patient Refused): diphenhydrAMINE 50 mg IVP once sd1 12:40 Drug: Metoclopramide 10 mg [metoclopramide 5 mg/mL injection solution] Route: IV; Rate: hs1 40 mg/hr; Infused Over: 15 mins; Site: left hand; 13:05 Follow up: IV Status: Completed infusion hs1 12:40 Drug: NS 0.9% 1000 ml [sodium chloride 0.9 % intravenous solution] Route: IV; Rate: hs1 bolus; Site: left hand; 16:11 Follow up: IV Status: Infusion discontinued; IV Intake: 200ml hs1 15:21 Drug: oxyCODONE-acetaminophen 1 tabs [oxycodone-acetaminophen 5 mg-325 mg tablet (1 hs1 tabs)] Route: PO; 16:10 Follow up: Response: Confirmed pt not driving.; Pain is decreased hs1 Signatures: Dispatcher [employer] EDAlia Diamond MD MD sd1 Fina Pineda, Reg Reg lg Colette Villanueva mt4 Frank Watts RN RN ml6 Elva Calvo RN RN hs1 The chart was reviewed and I authenticate all verbal orders and agree with the evaluation and treatment provided.Attachments: 12:12 [facility] Payment Agreement lg MTDD
--- NOTE | 2016-10-10 16:12 | EDDOCDS ---
Nurse's Notes [facility] Name: Genesis Qiuntanilla Age: 30 yrs Sex: Female : 1985 Arrival Date: 10/10/2016 Time: 11:30 Bed 15 Private MD: [facility] - Adults Diagnosis: Migraine-complex Presentation: 10/10 11:34 Presenting complaint: Patient states: states substernal Chest pain with pain radiating ml6 to left arm, also states left sided numbness, and numbness of tongue. Aspirin was not taken prior to arrival. Adult Sepsis Screening: The patient does not have new or worsening altered mentation. Patient's respiratory rate is less than 22. Systolic blood pressure is greater than 100. Patient has a qSOFA score of 0- Negative Sepsis Screen. Suicide/Homicide risk assessment- the patient denies having any suicidal and/or homicidal ideations and does not present with any other emotional, behavioral or mental health complaints. Status: Patient is not a early childhood services coordinator or dependent. Transition of care: patient was not received from another setting of care. Red Flag criteria, patient assessed and taken directly to a bed. 11:34 Acuity: STEPHANY Level 3 ml6 11:34 Method Of Arrival: Walkin/Carried/Asstd ml6 Triage Assessment: 11:52 General: Appears in no apparent distress, comfortable. Pain: Location: chest Pain ml6 currently is 6 out of 10 on a pain scale. Pain does not radiate. Quality of pain is described as aching, Pain began 2-3 days ago Is continuous Alleviated by nothing. Aggravated by increased activity. HIV screening NA for this visit Offered previously. Neurological: No deficits noted. Cardiovascular: Capillary refill < 3 seconds is brisk in bilateral fingers toes Heart tones S1 S2 present Edema is absent. Pulses are all present. 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 Respiratory: No deficits noted. 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 aspirin 81 mg Oral tab 2 tabs once daily (Last dose: 10/10/2016 07:00) - PMHx: angioedema; Asthma; Depression; hearing loss; MRSA; Sleep Apnea w/ CPAP; - PSHx: Tubal ligation; - Social history: Smoking status: Patient uses tobacco products, light tobacco smoker. No barriers to communication noted, Speaks appropriately for age. - Family history: No immediate family members are acutely ill. - : The pt / caregiver states he / she is not on anticoagulants. Home medication list is obtained from the patient. - Exposure Risk Screening:: None identified. Screenin:52 Screening information is obtained from the patient. Fall risk: No risks identified. hs1 Assistance ADL's: requires no assistance with activities of daily living. Abuse/DV Screen: The patient / caregiver reports he/she is: not in a situation that causes fear, pain or injury. Nutritional screening: No deficits noted. Advance Directives: There is no active DNR order. home support is adequate. Assessment: 11:52 General: Appears uncomfortable, Behavior is fussy. Pain: Location: back, chest and left hs1 arm Pain currently is 10 out of 10 on a pain scale. Neurological: Reports numbness and sharp pains down left arm. Patient concerned that she is having sharp pains whenever anyone touches her -stating ouch when touched however reports also not being able to feel when touched. . Cardiovascular: Rhythm is sinus rhythm No ectopy. Derm: Skin is pink, warm & dry. normal. 12:48 General: Appears in no apparent distress, Behavior is fussy. Pain: Location: back and hs1 left arm. GI: Abdomen is obese. Derm: Skin is pink, warm & dry. normal. 13:45 General: patient in MRI at present time. . hs1 14:35 Reassessment: Patient states feeling better. Patient states symptoms have improved. hs1 Patient states that her numbness is now going away and that she is feeling better. Patient states her headache is much improved. . General: Appears in no apparent distress, comfortable, Behavior is cooperative. 15:48 Reassessment: Patient states feeling better. Patient states symptoms have improved. hs1 General: Appears in no apparent distress, comfortable, Behavior is appropriate for age, cooperative. Vital Signs: 11:34 BP 144 / 78 RA Sitting (auto/reg); Pulse 82; Resp 18; Temp 96.8(O); Pulse Ox 99% on jrd R/A; Weight 99.79 kg (R); Height 5 ft. 6 in. (167.64 cm); Pain 10/10; 16:11 BP 129 / 66; Pulse 89; Resp 18; Temp 97.1; Pulse Ox 98% ; Pain 5/10; hs1 11:34 Body Mass Index 35.51 (99.79 kg, 167.64 cm) jrd Vitals: 11:34 Log In Time: October 10, 2016 at 11:29. RN notified that patient meets Red Flag jrd criteria. ED Course: 11:33 Patient visited by Kendall Dooley PCA. jrd 11:33 Patient moved to Waiting jrd 11:34 [facility] is Private Physician. jrd 11:36 Elva Calvo RN is Primary Nurse. ml6 11:36 Patient visited by Kendall Dooley PCA. jrd 11:36 Patient moved to 15 ml6 11:41 Alia Loving MD is Attending Physician. sd1 11:41 Patient visited by Alia Loving MD. sd1 11:51 Triage Initiated ml6 11:52 Patient visited by Ramirez Mak. jml1 11:52 EKG done. (by ED staff). Reviewed by Alia Loving MD. jml1 12:00 Inserted saline lock: 18 gauge in left hand The patient tolerated the procedure well. hs1 12:12 [facility] Payment Agreement was scanned into [employer] and attached to record. lg 12:15 Cardiac monitoring not applicable on this patient. hs1 12:39 Patient visited by Elva Calvo RN. hs1 13:09 CT Head Without Contrast Returned. EDMS 13:39 Patient visited by Elva Calov RN. hs1 13:51 Chest, 2 View (pa\\E\\lat) Returned. EDMS 14:49 Patient visited by Ramirez Mak. jml1 15:21 Patient visited by Elva Calvo RN. hs1 15:21 -MRI-Brain without Returned. EDMS 15:21 -MRA-Brain without contrast Returned. EDMS 15:30 [facility] is Referral Physician. sd1 15:30 Lluvia Martinez is Referral Physician. sd1 15:57 The patient / caregiver is instructed regarding the plan of care and ED course. hs1 15:57 Discontinued IV lock intact, bleeding controlled, pressure dressing applied, No hs1 redness/swelling at site. No procedures done that require assistance. Administered Medications: 12:38 Not Given (Patient Refused): diphenhydrAMINE 50 mg IVP once sd1 12:40 Drug: Metoclopramide 10 mg [metoclopramide 5 mg/mL injection solution] Route: IV; Rate: hs1 40 mg/hr; Infused Over: 15 mins; Site: left hand; 13:05 Follow up: IV Status: Completed infusion hs1 12:40 Drug: NS 0.9% 1000 ml [sodium chloride 0.9 % intravenous solution] Route: IV; Rate: hs1 bolus; Site: left hand; 16:11 Follow up: IV Status: Infusion discontinued; IV Intake: 200ml hs1 15:21 Drug: oxyCODONE-acetaminophen 1 tabs [oxycodone-acetaminophen 5 mg-325 mg tablet (1 hs1 tabs)] Route: PO; 16:10 Follow up: Response: Confirmed pt not driving.; Pain is decreased hs1 Intake: 16:11 IV: 200.00ml; Total: 200.00ml. hs1 Order Results: Lab Order: Basic Metabolic Profile; SPEC'M 10/10/16 11:55 Test: GLUCOSE, FASTING; Value: 125; Range: 70-105; Abnormal: Above high normal; Units: MG/DL; Status: F Test: BLOOD UREA NITROGEN; Value: 13; Range: 7-18; Units: MG/DL; Status: F Test: CREATININE FOR GFR; Value: 0.86; Range: 0.55-1.02; Units: MG/DL; Status: F Test: SODIUM LEVEL; Range: 136-145; Units: MEQ/L; Status: I Test: POTASSIUM SERUM; Range: 3.5-5.1; Units: MEQ/L; Status: I Test: CHLORIDE LEVEL; Range: 98-107; Units: MEQ/L; Status: I Test: CARBON DIOXIDE LEVEL; Range: 21-32; Units: MEQ/L; Status: I Test: ANION GAP; Range: 8-16; Units: MEQ/L; Status: I Test: CALCIUM LEVEL; Range: 8.5-10.1; Units: MG/DL; Status: I Test: GLOMERULAR FILTRATION RATE; Value: > 60.0; Range: >60; Status: F Test: SODIUM LEVEL; Value: 141; Range: 136-145; Units: MEQ/L; Status: F Test: POTASSIUM SERUM; Value: 3.9; Range: 3.5-5.1; Units: MEQ/L; Status: F Test: CHLORIDE LEVEL; Value: 108; Range: 98-107; Abnormal: Above high normal; Units: MEQ/L; Status: F Test: CARBON DIOXIDE LEVEL; Value: 25; Range: 21-32; Units: MEQ/L; Status: F Test: ANION GAP; Value: 8; Range: 8-16; Units: MEQ/L; Status: F Test: CALCIUM LEVEL; Value: 8.7; Range: 8.5-10.1; Units: MG/DL; Status: F Test Note: ; Units are mL/min/1.73 m2 Chronic Kidney Disease Staging per NKF: Stage I & II GFR >=60 Normal to Mildly Decreased Stage III GFR 30-59 Moderately Decreased Stage IV GFR 15-29 Severely Decreased Stage V GFR <15 Very Little GFR Left ESRD GFR <15 on GIFT PACKER Lab Order: CBC with Diff; SPEC'M 10/10/16 11:55 Test: WHITE BLOOD COUNT; Value: 5.7; Range: 4.0-10.0; Units: K/mm3; Status: F Test: RED BLOOD COUNT; Value: 4.39; Range: 4.00-5.40; Units: M/mm3; Status: F Test: HEMOGLOBIN; Value: 11.9; Range: 12.0-16.0; Abnormal: Below low normal; Units: g/dl; Status: F Test: HEMATOCRIT; Value: 35.6; Range: 36.0-47.0; Abnormal: Below low normal; Units: %; Status: F Test: MEAN CORPUSCULAR VOLUME; Value: 81.0; Range: 80.0-96.0; Units: fl; Status: F Test: MEAN CORPUSCULAR HEMOGLOBIN; Value: 27.0; Range: 27.0-33.0; Units: pg; Status: F Test: MEAN CORPUSCULAR HGB CONC; Value: 33.4; Range: 32.0-36.5; Units: g/dl; Status: F Test: RED CELL DISTRIBUTION WIDTH; Value: 14.8; Range: 11.5-14.5; Abnormal: Above high normal; Units: %; Status: F Test: PLATELET COUNT, AUTOMATED; Value: 222; Range: 150-450; Units: k/mm3; Status: F Test: NEUTROPHILS %; Value: 57.5; Range: 36.0-66.0; Units: %; Status: F Test: LYMPH %; Value: 28.5; Range: 24.0-44.0; Units: %; Status: F Test: MONO %; Value: 6.9; Range: 0.0-5.0; Abnormal: Above high normal; Units: %; Status: F Test: EOS %; Value: 3.8; Range: 0.0-3.0; Abnormal: Above high normal; Units: %; Status: F Test: BASO %; Value: 0.7; Range: 0.0-1.0; Units: %; Status: F Test: LARGE UNSTAINED CELL %; Value: 2.7; Range: 0.0-4.0; Units: %; Status: F Test: NEUTROPHILS #; Value: 3.3; Range: 1.8-7.7; Units: K/mm3; Status: F Test: LYMPH #; Value: 1.8; Range: 1.5-4.5; Units: K/mm3; Status: F Test: MONO #; Value: 0.4; Range: 0.0-0.8; Units: K/mm3; Status: F Test: EOS #; Value: 0.2; Range: 0.0-0.50; Units: K/mm3; Status: F Test: BASO #; Value: 0.0; Range: 0.0-0.2; Units: K/mm3; Status: F Test: LARGE UNSTAINED CELL #; Value: 0.2; Range: 0.0-0.4; Units: K/mm3; Status: F Lab Order: Liver Profile; SPEC'M 10/10/16 11:55 Test: AST/SGOT; Value: 42; Range: 15-37; Abnormal: Above high normal; Units: U/L; Status: F Test: ALT/SGPT; Value: 44; Range: 12-78; Units: U/L; Status: F Test: ALKALINE PHOSPHATASE; Value: 102; Range: 45-117; Units: U/L; Status: F Test: BILIRUBIN,TOTAL; Value: 0.3; Range: 0.2-1.0; Units: MG/DL; Status: F Test: BILIRUBIN,DIRECT; Value: < 0.1; Range: 0.0-0.2; Units: MG/DL; Status: F Test: TOTAL PROTEIN; Value: 7.6; Range: 6.4-8.2; Units: GM/DL; Status: F Test: ALBUMIN; Value: 3.4; Range: 3.2-5.2; Units: GM/DL; Status: F Test: ALBUMIN/GLOBULIN RATIO; Value: 0.81; Range: 1.00-1.93; Abnormal: Below low normal; Status: F Lab Order: HCG,Serum Qualitative; SPEC'M 10/10/16 11:55 Test: HCG, SERUM QUALITATIVE; Value: NEGATIVE; Range: NEGATIVE; Status: F Radiology Order: CT Head Without Contrast Test: CT Head Without Contrast REASON FOR EXAMINATION: paresthesia; CT Head without contrast; ; HISTORY: Paresthesias; ; COMPARISON: 02/25/2013; ; There is no intraparenchymal hemorrhage, acute infarct, mass or midline shift.; The ventricular system is normal in appearance. There is no extra cerebral; collection. There is no fracture. The visualized sinuses are clear.; ; IMPRESSION: There is no intracranial lesion.; ; ; ; ; Signed by; Giovanni Paz MD 10/10/2016 12:47 P; Radiology Order: Chest, 2 View (pa\\E\\lat) Test: Chest, 2 View (pa\\E\\lat) REASON FOR EXAMINATION: pleuritic chest pain; Clinical: Pleuritic chest pain .; ; Comparison: 09/24/2016 .; ; Technique: PA and lateral.; ; Findings:; The mediastinum and cardiac silhouette are normal. The lung bagley are clear and; without acute consolidation, effusion, or pneumothorax. The skeletal structures; are intact and normal.; ; Impression:; 1. No acute cardiopulmonary process.; ; ; Signed by; Poncho Valencia MD 10/10/2016 01:03 P; Radiology Order: -MRA-Brain without contrast Test: -MRA-Brain without contrast REASON FOR EXAMINATION: left paresthesia weak; MRA BRAIN WITHOUT CONTRAST:; ; HISTORY: Paresthesias.; ; 3D [id number] MR angiography was performed at the level of the [place] of; Prakash. There is no aneurysm, arteriovenous malformation, or atherosclerotic; lesion. Major intracranial vessels are patent. The vertebral arteries are equal; in size.; ; IMPRESSION:; ; Normal MRA brain.; ; ; Signed by; Giovanni Paz MD 10/10/2016 03:09 P; Radiology Order: -MRI-Brain without Test: -MRI-Brain without REASON FOR EXAMINATION: see MRA; MRI BRAIN WITHOUT CONTRAST:; ; HISTORY: Paresthesias.; ; COMPARISON: 05/06/2011.; ; There are no areas of abnormal signal intensity in the brain. There is no; intraparenchymal hemorrhage, infarct, mass or midline shift. The ventricular; system is normal in appearance. There is no extracerebral collection. The; visualized sinuses are clear.; ; IMPRESSION:; ; There is no intracranial lesion.; ; ; Signed by; Giovanni Paz MD 10/10/2016 03:09 P; Outcome: 15:30 Discharge ordered by Provider. sd1 16:09 Discharge Assessment: Patient awake, alert and oriented x 3. No cognitive and/or hs1 functional deficits noted. Patient verbalized understanding of disposition instructions. patient administered narcotics - yes. Pt provided with safe discharge. The following High Risk Discharge criteria are identified: None. Discharged to home ambulatory. Condition: stable. Discharge instructions given to patient, Instructed on discharge instructions, follow up and referral plans. medication usage, Demonstrated understanding of instructions, medications, Pt was receptive of discharge instructions/ teaching. CT Study completed. Property sent home with patient. 16:12 Patient left the ED. hs1 Signatures: Dispatcher [employer] EDAlia Diamond MD MD sd1 Fina Pineda, Jose Manuel Reg lg Frank Watts RN RN ml6 Elva Calvo RN RN hs1 Ramirez Mak jml1 Soumya, Kendall, SCOURING PADS SUPERVISOR SCOURING PADS SUPERVISOR jrd MTDD
--- NOTE | 2016-10-10 20:14 | ECGEPIP ---
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
--- NOTE | 2016-10-12 17:12 | EDDOCDS ---
Physician Documentation [facility] Name: Genesis Quintanilla Age: 30 yrs Sex: Female : 1985 Arrival Date: 10/10/2016 Time: 11:30 Bed 15 Private MD: [facility], [place] - Adults Disposition: 10/10/16 15:30 Discharged to Home/Self Care. Impression: Migraine - complex. - Condition is Stable. - Discharge Instructions: Migraine Headache. - Medication Reconciliation, Local Pharmacy Hours form. - Follow up: Center - Adults [facility]; When: Tomorrow. Follow up: Lluvia Martinez; When: Call to arrange an appointment. - Problem is new. - Symptoms are resolved. Historical: - Allergies: Bees (Anaphylaxis); Clindamycin (Rash); Erythromycin (Rash); Latex; Naproxen (Unknown); PENICILLINS (Rash); SULFA (SULFONAMIDES) (Swelling); - Home Meds: 1. aspirin 81 mg Oral tab 2 tabs once daily (Last dose: 10/10/2016 07:00) - PMHx: angioedema; Asthma; Depression; hearing loss; MRSA; Sleep Apnea w/ CPAP; - PSHx: Tubal ligation; - Social history: Smoking status: Patient uses tobacco products, light tobacco smoker. No barriers to communication noted, Speaks appropriately for age. - Family history: No immediate family members are acutely ill. - : The pt / caregiver states he / she is not on anticoagulants. Home medication list is obtained from the patient. - Exposure Risk Screening:: None identified. 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 6 in. (167.64 cm); Pain 10/10; 16:11 BP 129 / 66; Pulse 89; Resp 18; Temp 97.1; Pulse Ox 98% ; Pain 5/10; hs1 11:34 Body Mass Index 35.51 (99.79 kg, 167.64 cm) jrd MDM: 11:42 ECG WITH READING ER PHYS+CARDIAG ordered. EDMS 11:53 IV Saline Lock ordered. sd1 11:54 Basic Metabolic Profile Ordered. EDMS 11:54 CBC with Diff Ordered. EDMS 11:54 Liver Profile Ordered. EDMS 11:54 HCG,Serum Qualitative Ordered. EDMS 11:55 Chest, 2 View (pa\E\lat) Ordered. EDMS 11:55 CT Head Without Contrast Ordered. EDMS 12:06 Financial registration complete. lg 12:12 [facility] Payment Agreement was scanned into [employer] and attached to record. lg 12:13 Metoclopramide 10 mg IV at 40 mg/hr once over 15 mins ordered. sd1 12:13 diphenhydrAMINE 50 mg IVP once ordered. sd1 12:13 NS 0.9% 1000 ml IV at bolus once ordered. sd1 12:37 CBC with Diff Reviewed. sd1 12:37 HCG,Serum Qualitative Reviewed. sd1 12:46 Basic Metabolic Profile Reviewed. sd1 12:46 Liver Profile Reviewed. sd1 12:46 HCG,Serum Qualitative Reviewed. sd1 13:07 MRI Screening Tool - Place on chart, inform RN ordered. sd1 13:08 -MRA-Brain without contrast Ordered. EDMS 13:08 -MRI-Brain without Ordered. EDMS 14:19 MRI Screening Tool - Place on chart, inform RN complete. mt4 14:54 REGULAR+DIET ordered. EDMS 15:05 oxyCODONE-acetaminophen 5 mg-325 mg 1 tabs PO once ordered. sd1 10/11 10:23 T-Sheet-- Draft Copy was scanned into [employer] and attached to record. gb 10:23 ECG/EKG was scanned into [employer] and attached to record. gb Administered Medications: 10/10 12:38 Not Given (Patient Refused): diphenhydrAMINE 50 mg IVP once sd1 12:40 Drug: Metoclopramide 10 mg [metoclopramide 5 mg/mL injection solution] Route: IV; Rate: hs1 40 mg/hr; Infused Over: 15 mins; Site: left hand; 13:05 Follow up: IV Status: Completed infusion hs1 12:40 Drug: NS 0.9% 1000 ml [sodium chloride 0.9 % intravenous solution] Route: IV; Rate: hs1 bolus; Site: left hand; 16:11 Follow up: IV Status: Infusion discontinued; IV Intake: 200ml hs1 15:21 Drug: oxyCODONE-acetaminophen 1 tabs [oxycodone-acetaminophen 5 mg-325 mg tablet (1 hs1 tabs)] Route: PO; 16:10 Follow up: Response: Confirmed pt not driving.; Pain is decreased hs1 Signatures: Dispatcher [employer] EDAlia Diamond MD MD sd1 Zaida Cummings, Reg Reg gb Fina Pineda, Reg Reg lg Colette Villanueva mt4 Frank Watts RN RN ml6 Elva Calvo RN RN hs1 The chart was reviewed and I authenticate all verbal orders and agree with the evaluation and treatment provided.Attachments: 12:12 [facility] Payment Agreement lg 10/11 10:23 T-Sheet-- Draft Copy gb 10:23 ECG/EKG gb Chart Complete MTDD
--- NOTE | 2016-10-12 17:12 | EDDOCDS ---
Physician Documentation [facility] Name: Genesis Quintanilla Age: 30 yrs Sex: Female : 1985 Arrival Date: 10/10/2016 Time: 11:30 Bed 15 Private MD: [facility], [place] - Adults Disposition: 10/10/16 15:30 Discharged to Home/Self Care. Impression: Migraine - complex. - Condition is Stable. - Discharge Instructions: Migraine Headache. - Medication Reconciliation, Local Pharmacy Hours form. - Follow up: Center - Adults [facility]; When: Tomorrow. Follow up: Lluvia Martinez; When: Call to arrange an appointment. - Problem is new. - Symptoms are resolved. Historical: - Allergies: Bees (Anaphylaxis); Clindamycin (Rash); Erythromycin (Rash); Latex; Naproxen (Unknown); PENICILLINS (Rash); SULFA (SULFONAMIDES) (Swelling); - Home Meds: 1. aspirin 81 mg Oral tab 2 tabs once daily (Last dose: 10/10/2016 07:00) - PMHx: angioedema; Asthma; Depression; hearing loss; MRSA; Sleep Apnea w/ CPAP; - PSHx: Tubal ligation; - Social history: Smoking status: Patient uses tobacco products, light tobacco smoker. No barriers to communication noted, Speaks appropriately for age. - Family history: No immediate family members are acutely ill. - : The pt / caregiver states he / she is not on anticoagulants. Home medication list is obtained from the patient. - Exposure Risk Screening:: None identified. CLASSIFIER: 10/10 16:09 irregular menses - tubal ligation - however patient unsure of hs1 Vital Signs: 11:34 BP 144 / 78 RA Sitting (auto/reg); Pulse 82; Resp 18; Temp 96.8(O); Pulse Ox 99% on jrd R/A; Weight 99.79 kg / 220 lbs (R); Height 5 ft. 6 in. (167.64 cm); Pain 10/10; 16:11 BP 129 / 66; Pulse 89; Resp 18; Temp 97.1; Pulse Ox 98% ; Pain 5/10; hs1 11:34 Body Mass Index 35.51 (99.79 kg, 167.64 cm) jrd MDM: 11:42 ECG WITH READING ER PHYS+CARDIAG ordered. EDMS 11:53 IV Saline Lock ordered. sd1 11:54 Basic Metabolic Profile Ordered. EDMS 11:54 CBC with Diff Ordered. EDMS 11:54 Liver Profile Ordered. EDMS 11:54 HCG,Serum Qualitative Ordered. EDMS 11:55 Chest, 2 View (pa\E\lat) Ordered. EDMS 11:55 CT Head Without Contrast Ordered. EDMS 12:06 Financial registration complete. lg 12:12 [facility] Payment Agreement was scanned into [employer] and attached to record. lg 12:13 Metoclopramide 10 mg IV at 40 mg/hr once over 15 mins ordered. sd1 12:13 diphenhydrAMINE 50 mg IVP once ordered. sd1 12:13 NS 0.9% 1000 ml IV at bolus once ordered. sd1 12:37 CBC with Diff Reviewed. sd1 12:37 HCG,Serum Qualitative Reviewed. sd1 12:46 Basic Metabolic Profile Reviewed. sd1 12:46 Liver Profile Reviewed. sd1 12:46 HCG,Serum Qualitative Reviewed. sd1 13:07 MRI Screening Tool - Place on chart, inform RN ordered. sd1 13:08 -MRA-Brain without contrast Ordered. EDMS 13:08 -MRI-Brain without Ordered. EDMS 14:19 MRI Screening Tool - Place on chart, inform RN complete. mt4 14:54 REGULAR+DIET ordered. EDMS 15:05 oxyCODONE-acetaminophen 5 mg-325 mg 1 tabs PO once ordered. sd1 10/11 10:23 T-Sheet-- Draft Copy was scanned into [employer] and attached to record. gb 10:23 ECG/EKG was scanned into [employer] and attached to record. gb Administered Medications: 10/10 12:38 Not Given (Patient Refused): diphenhydrAMINE 50 mg IVP once sd1 12:40 Drug: Metoclopramide 10 mg [metoclopramide 5 mg/mL injection solution] Route: IV; Rate: hs1 40 mg/hr; Infused Over: 15 mins; Site: left hand; 13:05 Follow up: IV Status: Completed infusion hs1 12:40 Drug: NS 0.9% 1000 ml [sodium chloride 0.9 % intravenous solution] Route: IV; Rate: hs1 bolus; Site: left hand; 16:11 Follow up: IV Status: Infusion discontinued; IV Intake: 200ml hs1 15:21 Drug: oxyCODONE-acetaminophen 1 tabs [oxycodone-acetaminophen 5 mg-325 mg tablet (1 hs1 tabs)] Route: PO; 16:10 Follow up: Response: Confirmed pt not driving.; Pain is decreased hs1 Signatures: Dispatcher [employer] EDAlia Diamond MD MD sd1 Zaida Cummings, Reg Reg gb Fina Pineda, Reg Reg lg Colette Villanueva mt4 Frank Watts RN RN ml6 Elva Calvo RN RN hs1 The chart was reviewed and I authenticate all verbal orders and agree with the evaluation and treatment provided.Attachments: 12:12 [facility] Payment Agreement lg 10/11 10:23 T-Sheet-- Draft Copy gb 10:23 ECG/EKG gb Chart Complete MTDD
--- NOTE | 2016-10-12 17:12 | EDDOCDS ---
[facility] Name: Genesis Quintanilla Age: 30 yrs Sex: Female : 1985 Arrival Date: 10/10/2016 Time: 11:30 Bed 15 Private MD: [facility] Diagnosis: Migraine-complex Presentation: 10/10 11:34 Presenting complaint: Patient states: states substernal Chest pain with pain radiating ml6 to left arm, also states left sided numbness, and numbness of tongue. Aspirin was not taken prior to arrival. Adult Sepsis Screening: The patient does not have new or worsening altered mentation. Patient's respiratory rate is less than 22. Systolic blood pressure is greater than 100. Patient has a qSOFA score of 0- Negative Sepsis Screen. Suicide/Homicide risk assessment- the patient denies having any suicidal and/or homicidal ideations and does not present with any other emotional, behavioral or mental health complaints. Status: Patient is not a community service representative or dependent. Transition of care: patient was not received from another setting of care. Red Flag criteria, patient assessed and taken directly to a bed. 11:34 Acuity: STEPHANY Level 3 ml6 11:34 Method Of Arrival: Walkin/Carried/Asstd ml6 Triage Assessment: 11:52 General: Appears in no apparent distress, comfortable. Pain: Location: chest Pain ml6 currently is 6 out of 10 on a pain scale. Pain does not radiate. Quality of pain is described as aching, Pain began 2-3 days ago Is continuous Alleviated by nothing. Aggravated by increased activity. HIV screening NA for this visit Offered previously. Neurological: No deficits noted. Cardiovascular: Capillary refill < 3 seconds is brisk in bilateral fingers toes Heart tones S1 S2 present Edema is absent. Pulses are all present. 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 Respiratory: No deficits noted. 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 aspirin 81 mg Oral tab 2 tabs once daily (Last dose: 10/10/2016 07:00) - PMHx: angioedema; Asthma; Depression; hearing loss; MRSA; Sleep Apnea w/ CPAP; - PSHx: Tubal ligation; - Social history: Smoking status: Patient uses tobacco products, light tobacco smoker. No barriers to communication noted, Speaks appropriately for age. - Family history: No immediate family members are acutely ill. - : The pt / caregiver states he / she is not on anticoagulants. Home medication list is obtained from the patient. - Exposure Risk Screening:: None identified. Screenin:52 Screening information is obtained from the patient. Fall risk: No risks identified. hs1 Assistance ADL's: requires no assistance with activities of daily living. Abuse/DV Screen: The patient / caregiver reports he/she is: not in a situation that causes fear, pain or injury. Nutritional screening: No deficits noted. Advance Directives: There is no active DNR order. home support is adequate. Assessment: 11:52 General: Appears uncomfortable, Behavior is fussy. Pain: Location: back, chest and left hs1 arm Pain currently is 10 out of 10 on a pain scale. Neurological: Reports numbness and sharp pains down left arm. Patient concerned that she is having sharp pains whenever anyone touches her -stating ouch when touched however reports also not being able to feel when touched. . Cardiovascular: Rhythm is sinus rhythm No ectopy. Derm: Skin is pink, warm & dry. normal. 12:48 General: Appears in no apparent distress, Behavior is fussy. Pain: Location: back and hs1 left arm. GI: Abdomen is obese. Derm: Skin is pink, warm & dry. normal. 13:45 General: patient in MRI at present time. . hs1 14:35 Reassessment: Patient states feeling better. Patient states symptoms have improved. hs1 Patient states that her numbness is now going away and that she is feeling better. Patient states her headache is much improved. . General: Appears in no apparent distress, comfortable, Behavior is cooperative. 15:48 Reassessment: Patient states feeling better. Patient states symptoms have improved. hs1 General: Appears in no apparent distress, comfortable, Behavior is appropriate for age, cooperative. Vital Signs: 11:34 BP 144 / 78 RA Sitting (auto/reg); Pulse 82; Resp 18; Temp 96.8(O); Pulse Ox 99% on jrd R/A; Weight 99.79 kg (R); Height 5 ft. 6 in. (167.64 cm); Pain 10/10; 16:11 BP 129 / 66; Pulse 89; Resp 18; Temp 97.1; Pulse Ox 98% ; Pain 5/10; hs1 11:34 Body Mass Index 35.51 (99.79 kg, 167.64 cm) jrd Vitals: 11:34 Log In Time: October 10, 2016 at 11:29. RN notified that patient meets Red Flag jrd criteria. ED Course: 11:33 Patient visited by Kendall Dooley PCA. jrd 11:33 Patient moved to Waiting jrd 11:34 [facility] is Private Physician. jrd 11:36 Elva Calvo RN is Primary Nurse. ml6 11:36 Patient visited by Kendall Dooley PCA. jrd 11:36 Patient moved to 15 ml6 11:41 Alia Loving MD is Attending Physician. sd1 11:41 Patient visited by Alia Loving MD. sd1 11:51 Triage Initiated ml6 11:52 Patient visited by Ramirez Mak. jml1 11:52 EKG done. (by ED staff). Reviewed by Alia Loving MD. jml1 12:00 Inserted saline lock: 18 gauge in left hand The patient tolerated the procedure well. hs1 12:12 [facility] Payment Agreement was scanned into [employer] and attached to record. lg 12:15 Cardiac monitoring not applicable on this patient. hs1 12:39 Patient visited by Elva Calvo RN. hs1 13:09 CT Head Without Contrast Returned. EDMS 13:39 Patient visited by Elva Calvo RN. hs1 13:51 Chest, 2 View (pa\\E\\lat) Returned. EDMS 14:49 Patient visited by Ramirez Mak. jml1 15:21 Patient visited by Elva Calvo RN. hs1 15:21 -MRI-Brain without Returned. EDMS 15:21 -MRA-Brain without contrast Returned. EDMS 15:30 [facility] is Referral Physician. sd1 15:30 Lluvia Martinez is Referral Physician. sd1 15:57 The patient / caregiver is instructed regarding the plan of care and ED course. hs1 15:57 Discontinued IV lock intact, bleeding controlled, pressure dressing applied, No hs1 redness/swelling at site. No procedures done that require assistance. 20:14 EKG-ADULT Returned. EDMS 02 10:23 T-Sheet-- Draft Copy was scanned into [employer] and attached to record. gb 10:23 ECG/EKG was scanned into [employer] and attached to record. gb Administered Medications: 10/10 12:38 Not Given (Patient Refused): diphenhydrAMINE 50 mg IVP once sd1 12:40 Drug: Metoclopramide 10 mg [metoclopramide 5 mg/mL injection solution] Route: IV; Rate: hs1 40 mg/hr; Infused Over: 15 mins; Site: left hand; 13:05 Follow up: IV Status: Completed infusion hs1 12:40 Drug: NS 0.9% 1000 ml [sodium chloride 0.9 % intravenous solution] Route: IV; Rate: hs1 bolus; Site: left hand; 16:11 Follow up: IV Status: Infusion discontinued; IV Intake: 200ml hs1 15:21 Drug: oxyCODONE-acetaminophen 1 tabs [oxycodone-acetaminophen 5 mg-325 mg tablet (1 hs1 tabs)] Route: PO; 16:10 Follow up: Response: Confirmed pt not driving.; Pain is decreased hs1 Intake: 16:11 IV: 200.00ml; Total: 200.00ml. hs1 Order Results: Lab Order: Basic Metabolic Profile; SPEC'M 10/10/16 11:55 Test: GLUCOSE, FASTING; Value: 125; Range: 70-105; Abnormal: Above high normal; Units: MG/DL; Status: F Test: BLOOD UREA NITROGEN; Value: 13; Range: 7-18; Units: MG/DL; Status: F Test: CREATININE FOR GFR; Value: 0.86; Range: 0.55-1.02; Units: MG/DL; Status: F Test: SODIUM LEVEL; Range: 136-145; Units: MEQ/L; Status: I Test: POTASSIUM SERUM; Range: 3.5-5.1; Units: MEQ/L; Status: I Test: CHLORIDE LEVEL; Range: 98-107; Units: MEQ/L; Status: I Test: CARBON DIOXIDE LEVEL; Range: 21-32; Units: MEQ/L; Status: I Test: ANION GAP; Range: 8-16; Units: MEQ/L; Status: I Test: CALCIUM LEVEL; Range: 8.5-10.1; Units: MG/DL; Status: I Test: GLOMERULAR FILTRATION RATE; Value: > 60.0; Range: >60; Status: F Test: SODIUM LEVEL; Value: 141; Range: 136-145; Units: MEQ/L; Status: F Test: POTASSIUM SERUM; Value: 3.9; Range: 3.5-5.1; Units: MEQ/L; Status: F Test: CHLORIDE LEVEL; Value: 108; Range: 98-107; Abnormal: Above high normal; Units: MEQ/L; Status: F Test: CARBON DIOXIDE LEVEL; Value: 25; Range: 21-32; Units: MEQ/L; Status: F Test: ANION GAP; Value: 8; Range: 8-16; Units: MEQ/L; Status: F Test: CALCIUM LEVEL; Value: 8.7; Range: 8.5-10.1; Units: MG/DL; Status: F Test Note: ; Units are mL/min/1.73 m2 Chronic Kidney Disease Staging per NKF: Stage I & II GFR >=60 Normal to Mildly Decreased Stage III GFR 30-59 Moderately Decreased Stage IV GFR 15-29 Severely Decreased Stage V GFR <15 Very Little GFR Left ESRD GFR <15 on TALENT SOURCER Lab Order: CBC with Diff; SPEC'M 10/10/16 11:55 Test: WHITE BLOOD COUNT; Value: 5.7; Range: 4.0-10.0; Units: K/mm3; Status: F Test: RED BLOOD COUNT; Value: 4.39; Range: 4.00-5.40; Units: M/mm3; Status: F Test: HEMOGLOBIN; Value: 11.9; Range: 12.0-16.0; Abnormal: Below low normal; Units: g/dl; Status: F Test: HEMATOCRIT; Value: 35.6; Range: 36.0-47.0; Abnormal: Below low normal; Units: %; Status: F Test: MEAN CORPUSCULAR VOLUME; Value: 81.0; Range: 80.0-96.0; Units: fl; Status: F Test: MEAN CORPUSCULAR HEMOGLOBIN; Value: 27.0; Range: 27.0-33.0; Units: pg; Status: F Test: MEAN CORPUSCULAR HGB CONC; Value: 33.4; Range: 32.0-36.5; Units: g/dl; Status: F Test: RED CELL DISTRIBUTION WIDTH; Value: 14.8; Range: 11.5-14.5; Abnormal: Above high normal; Units: %; Status: F Test: PLATELET COUNT, AUTOMATED; Value: 222; Range: 150-450; Units: k/mm3; Status: F Test: NEUTROPHILS %; Value: 57.5; Range: 36.0-66.0; Units: %; Status: F Test: LYMPH %; Value: 28.5; Range: 24.0-44.0; Units: %; Status: F Test: MONO %; Value: 6.9; Range: 0.0-5.0; Abnormal: Above high normal; Units: %; Status: F Test: EOS %; Value: 3.8; Range: 0.0-3.0; Abnormal: Above high normal; Units: %; Status: F Test: BASO %; Value: 0.7; Range: 0.0-1.0; Units: %; Status: F Test: LARGE UNSTAINED CELL %; Value: 2.7; Range: 0.0-4.0; Units: %; Status: F Test: NEUTROPHILS #; Value: 3.3; Range: 1.8-7.7; Units: K/mm3; Status: F Test: LYMPH #; Value: 1.8; Range: 1.5-4.5; Units: K/mm3; Status: F Test: MONO #; Value: 0.4; Range: 0.0-0.8; Units: K/mm3; Status: F Test: EOS #; Value: 0.2; Range: 0.0-0.50; Units: K/mm3; Status: F Test: BASO #; Value: 0.0; Range: 0.0-0.2; Units: K/mm3; Status: F Test: LARGE UNSTAINED CELL #; Value: 0.2; Range: 0.0-0.4; Units: K/mm3; Status: F Lab Order: Liver Profile; SPEC'M 10/10/16 11:55 Test: AST/SGOT; Value: 42; Range: 15-37; Abnormal: Above high normal; Units: U/L; Status: F Test: ALT/SGPT; Value: 44; Range: 12-78; Units: U/L; Status: F Test: ALKALINE PHOSPHATASE; Value: 102; Range: 45-117; Units: U/L; Status: F Test: BILIRUBIN,TOTAL; Value: 0.3; Range: 0.2-1.0; Units: MG/DL; Status: F Test: BILIRUBIN,DIRECT; Value: < 0.1; Range: 0.0-0.2; Units: MG/DL; Status: F Test: TOTAL PROTEIN; Value: 7.6; Range: 6.4-8.2; Units: GM/DL; Status: F Test: ALBUMIN; Value: 3.4; Range: 3.2-5.2; Units: GM/DL; Status: F Test: ALBUMIN/GLOBULIN RATIO; Value: 0.81; Range: 1.00-1.93; Abnormal: Below low normal; Status: F Lab Order: HCG,Serum Qualitative; SPEC'M 10/10/16 11:55 Test: HCG, SERUM QUALITATIVE; Value: NEGATIVE; Range: NEGATIVE; Status: F Radiology Order: CT Head Without Contrast Test: CT Head Without Contrast REASON FOR EXAMINATION: paresthesia; CT Head without contrast; ; HISTORY: Paresthesias; ; COMPARISON: 02/25/2013; ; There is no intraparenchymal hemorrhage, acute infarct, mass or midline shift.; The ventricular system is normal in appearance. There is no extra cerebral; collection. There is no fracture. The visualized sinuses are clear.; ; IMPRESSION: There is no intracranial lesion.; ; ; ; ; Signed by; Giovanni Paz MD 10/10/2016 12:47 P; Radiology Order: Chest, 2 View (pa\\E\\lat) Test: Chest, 2 View (pa\\E\\lat) REASON FOR EXAMINATION: pleuritic chest pain; Clinical: Pleuritic chest pain .; ; Comparison: 09/24/2016 .; ; Technique: PA and lateral.; ; Findings:; The mediastinum and cardiac silhouette are normal. The lung bagley are clear and; without acute consolidation, effusion, or pneumothorax. The skeletal structures; are intact and normal.; ; Impression:; 1. No acute cardiopulmonary process.; ; ; Signed by; Poncho Valencia MD 10/10/2016 01:03 P; Radiology Order: -MRA-Brain without contrast Test: -MRA-Brain without contrast REASON FOR EXAMINATION: left paresthesia weak; MRA BRAIN WITHOUT CONTRAST:; ; HISTORY: Paresthesias.; ; 3D [id number] MR angiography was performed at the level of the [place]; [place]. There is no aneurysm, arteriovenous malformation, or atherosclerotic; lesion. Major intracranial vessels are patent. The vertebral arteries are equal; in size.; ; IMPRESSION:; ; Normal MRA brain.; ; ; Signed by; Giovanni Paz MD 10/10/2016 03:09 P; Radiology Order: -MRI-Brain without Test: -MRI-Brain without REASON FOR EXAMINATION: see MRA; MRI BRAIN WITHOUT CONTRAST:; ; HISTORY: Paresthesias.; ; COMPARISON: 05/06/2011.; ; There are no areas of abnormal signal intensity in the brain. There is no; intraparenchymal hemorrhage, infarct, mass or midline shift. The ventricular; system is normal in appearance. There is no extracerebral collection. The; visualized sinuses are clear.; ; IMPRESSION:; ; There is no intracranial lesion.; ; ; Signed by; Giovanni Paz MD 10/10/2016 03:09 P; Outcome: 15:30 Discharge ordered by Provider. sd1 16:09 Discharge Assessment: Patient awake, alert and oriented x 3. No cognitive and/or hs1 functional deficits noted. Patient verbalized understanding of disposition instructions. patient administered narcotics - yes. Pt provided with safe discharge. The following High Risk Discharge criteria are identified: None. Discharged to home ambulatory. Condition: stable. Discharge instructions given to patient, Instructed on discharge instructions, follow up and referral plans. medication usage, Demonstrated understanding of instructions, medications, Pt was receptive of discharge instructions/ teaching. CT Study completed. Property sent home with patient. 16:12 Patient left the ED. hs1 Signatures: [facility] Alia Loving MD MD sd1 Zaida Cummings, Reg Reg gb Fina Pineda, Reg Reg lg Frank Watts, RN RN ml6 Elva Calvo RN RN hs1 Ramirez Mak jml1 Kendall Dooley, SANITARY LANDFILL OPERATOR SANITARY LANDFILL OPERATOR jrd Chart Complete MTDD
== END 2016-10-10 16:12 | disposition home or self-care (01) ==
LOC: M ED 11:30
DX: G43.109 Migraine with aura, not intractable, without status migrainosus (principal); J45.909 Unspecified asthma, uncomplicated; F32.9 Major depressive disorder, single episode, unspecified; G47.30 Sleep apnea, unspecified; Z86.14 Personal history of Methicillin resistant Staphylococcus aureus infection; Z72.0 Tobacco use; Z79.82 Long term (current) use of aspirin; Z91.030 Bee allergy status; Z88.1 Allergy status to other antibiotic agents; Z91.040 Latex allergy status; Z88.0 Allergy status to penicillin; Z88.2 Allergy status to sulfonamides
CPT/HCPCS: 36415; 70450; 70544; 70551; 71020; 80048; 80076; 84703; 85025; 93005; 96361; 96365; 99285; J1200; J2765

== ENCOUNTER 2016-11-10 19:22 | Inpatient (IN) | payer OTHER ==
[~2016-11-10] VITALS: Ht 165.1 cm; Wt 106.6 kg
[2016-11-10 20:37] LABS: MEAN CORPUSCULAR HEMOGLOBIN 26.9 pg (27.0-33.0); MEAN CORPUSCULAR VOLUME 81.5 fl (80.0-96.0); RED CELL DISTRIBUTION WIDTH 13.7 % (11.5-14.5); WHITE BLOOD COUNT 7.4 K/mm3 (4.0-10.0)
[2016-11-10 21:09] LABS: METHADONE URINE NEGATIVE (NEGATIVE)
[2016-11-10 21:11] LABS: ALBUMIN 3.9 GM/DL (3.2-5.2); ALBUMIN/GLOBULIN RATIO 0.91 (1.00-1.93); ALKALINE PHOSPHATASE 100 U/L (45-117); ALT/SGPT 48 U/L (12-78); ANION GAP 11 MEQ/L (8-16); AST/SGOT 45 U/L (15-37); BILIRUBIN,DIRECT 0.1 MG/DL (0.0-0.2); BILIRUBIN,TOTAL 0.4 MG/DL (0.2-1.0); BLOOD UREA NITROGEN 17 MG/DL (7-18); CARBON DIOXIDE LEVEL 23 MEQ/L (21-32); CHLORIDE LEVEL 105 MEQ/L (98-107); CREATININE FOR GFR 0.96 MG/DL (0.55-1.02); GLOMERULAR FILTRATION RATE > 60.0 (>60); GLUCOSE, FASTING 107 MG/DL (70-105); SODIUM LEVEL 139 MEQ/L (136-145); TOTAL PROTEIN 8.2 GM/DL (6.4-8.2)
[2016-11-11] MEDS ORDERED: ACETAMINOPHEN TAB 650MG DOSE (2X325MG) PO PRN (03:45)
[2016-11-11] MEDS ORDERED: traZODone 50 MG TAB PO PRN (03:45)
[2016-11-11] MEDS ORDERED: MOM 30ML SUSPENSION UDC PO PRN (03:45)
[2016-11-11 05:00] VITALS: BP 132/85
[2016-11-11] MEDS ORDERED: EPIP0.3I2 IJ (05:15)
[2016-11-11] MEDS ORDERED: ALBU17IN INH (05:15)
[2016-11-11] MEDS ORDERED: ALBU83IN INH (05:15)
--- NOTE | 2016-11-11 10:17 | HPEPDOC ---
Medical History and Physical Date of Admission Nov 11, 2016 at 03:44 History and Physical PCP: Nevaeh Martines NP ATTENDING: Dr. William Stout HPI: 31yoF admitted to [facility] for adjustment disorder, being medically examined today. Patient reports she has complex migraine headaches. She was referred to neurology however she missed her appointment. She was recently started on a medication for her headaches which she states has been helping. She states since she started the medication they have "not been very much" before that they were "a lot". She is a somewhat vague historian however describes the pain in the bifrontal area and at the back of her head and throbbing in nature associated with photophobia, phonophobia, nausea, dizziness and blurry vision. The pain last for hours at a time. She is allergic to acetaminophen, she does not take ibuprofen. She states she typically does not take anything for the pain and it resolves on its own. Denies any fevers, chills, weakness, fatigue, WATTS, CP, SOB, cough, palpitations, abdominal pain, N/V/D or changes in bowel or bladder habits. PMHx: KLEVER. Noncompliant with CPAP Chronic complex migraine headache MRI/MRA brain 10/10/16 unremarkable. CTA chest 09/24/16 negative for PE. Mild fatty liver. MRI lumbosacral spine 15 minimal degenerative disc changes L4-5. MRI thoracic spine 5/15 normal. 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 ROS: As noted in HPI, otherwise 11pt ROS of systems reviewed and remarkable only for LMP 11/08/16 PE: GEN: 31 yo F, appears stated age. Well-nourished, well developed. No acute distress. Alert and oriented x 3. Pleasant, interactive. HEENT: Normocephalic, atraumatic. Pupils are equal, round, and reactive to light. Extraocular movements are intact. No nystagmus appreciated. Sclera are nonicteric. Conjunctiva without injection. Nose midline. Nasal turbinates without bogginess. EACs both patent BL. TMs both visualized and roe with good cone of light, no bulging or erythema. No facial asymmetry. Moist mucous membranes. Dentition fair. Pharynx pink and moist, no cobblestoning. Neck supple , trachea midline. No lymphadenopathy or thyromegaly appreciated. CHEST: Regular rate and rhythm, +S1, +S2 LUNGS: Clear to auscultation bilaterally. No wheezes, rales, or rhonchi. Breathing appears symmetric and easy. Patient is speaking in full sentences. No accessory muscle use. ABD: Round, soft, non-tender, non-distended. +Bowel sounds throughout. No rebound or guarding. No costovertebral angle tenderness. EXT: Pulses 2+ bilaterally dorsalis pedis and radial. No lower extremity edema appreciated. SKIN: [place], dry, warm. Capillary refill <2sec. No rashes. NEURO: Alert and oriented x 3. Cranial nerves III-XII are intact. No focal deficits appreciated. EK10/10/16 SINUS RHYTHM SIMILAR 10/09/16. A&P: 31yoF admitted to [facility] for adjustment disorder 1. Psych. Plan per Psychiatry. EKG on file. 2. Chronic migraine headache. Confirm medications with pharmacy. Patient states she missed her appointment recently for consultation with neurology, will confirm referral and reschedule for discharge. MRI/MRA brain negative 10/10/16. Patient is allergic to acetaminophen. Ibuprofen 600 mg every 8 hours as needed. 3. History of KLEVER. CPAP from home with home settings. 4. Follow up with PCP on discharge. 5. History of tattoo done unprofessionally. HIV screening completed 12/04. Patient declines rescreening. Patient declines hepatitis screening at this time. Bernice SOL present throughout exam. Vital Signs Vital Signs Label Value Date Time Patient Temperature 97.9 degrees F 11/11/16 0500 Pulse 88 11/11/16 0500 Respiratory Rate 20 bpm 11/11/16 0500 Blood Pressure Assessment 132/85 (101) 11/11/16 0500 Bedside Pulse Oximetry 97 % 11/11/16 0444 Item Value Date Time Oxygen Delivery Method Room Air 11/11/16 0444 Laboratory Data Labs 24H Laboratory Tests 2 11/10/16 20:05: Acetaminophen Level < 2.0L, Aspartate Amino Transf (AST/SGOT) 45H, Alanine Aminotransferase (ALT/SGPT) 48, Alkaline Phosphatase 100, Total Bilirubin 0.4, Direct Bilirubin 0.1, Albumin 3.9, Albumin/Globulin Ratio 0.91L, Anion Gap 11, Calcium Level 9.0, Ethyl Alcohol Level < 0.003, Glomerular Filtration Rate > 60.0, Salicylates Level < 1.7L, Thyroid Stimulating Hormone (TSH) 1.680, Total Protein 8.2, Urine Amphetamines Screen NEGATIVE, Urine Benzodiazepines Screen NEGATIVE, Urine Opiates Screen NEGATIVE, Urine Barbiturates Screen NEGATIVE, Urine Cannabinoids Screen NEGATIVE, Urine Cocaine Metabolite Screen NEGATIVE, Urine Methadone Screen NEGATIVE, Urine Phencyclidine Screen NEGATIVE CBC/BMP Laboratory Tests 11/10/16 20:05 Red Blood Count 4.78, Mean Corpuscular Volume 81.5, Mean Corpuscular Hemoglobin 26.9 L, Mean Corpuscular Hemoglobin Concent 33.0, Red Cell Distribution Width 13.7 Home Medications Scheduled PRN (Epipen 2-Long) 0.3 Mg/0.3 Ml Inj 0.3 MG IJ ASDIRECTED PRN PRN ANAPHYLAXIS Albuterol Sulfate (Ventolin Hfa) 200 Puff/8 Gm Aers 2 PUFF INH Q4H PRN PRN SHORTNESS OF BREATH Albuterol Sulfate (Albuterol Sulfate) 2.5 Mg/3 Ml Nebu 2.5 MG INH Q6H PRN PRN SHORTNESS OF BREATH Allergies Coded Allergies: Acetaminophen (Verified Allergy, Severe, throat closes up, 11/11/16) Diphenhydramine (Verified Allergy, Severe, throat closes up, 11/11/16) Erythromycin (Verified Allergy, Severe, Facial Swelling, 11/10/16) Clindamycin (Verified Allergy, Mild, RASH ON HANDS, 11/10/16) Latex (Verified Allergy, Mild, RASH, 11/10/16) Penicillins (Verified Allergy, Mild, RASH, 11/10/16) Bee Venom (Unverified Allergy, Unknown, 11/10/16) Shrimp (Unverified Allergy, Unknown, 11/10/16) Tari Rosado Nov 11, 2016 10:17
[2016-11-11] MEDS ORDERED: IBUPROFEN 600 MG TAB PO PRN (10:30)
[2016-11-11] MEDS: MAALOX 30 ML SUSP *UDC PO PRN (13:30)
[2016-11-11 18:00] VITALS: BP 136/77
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
[2016-11-11] MEDS: TOPIRAMATE (TopAMAX) 25 MG TAB PO SCH (21:19)
[2016-11-12] MEDS: MAALOX 30 ML SUSP *UDC PO PRN ×2 (00:01→21:42)
[2016-11-12 06:24] VITALS: BP 138/84
--- NOTE | 2016-11-12 15:46 | IPN ---
DATE: 11/12/2016 Met with Genesis, her boyfriend, and her foster mother who has known her since she was 14. They all had different opinions concerning her moods, but they all agreed that she is somewhat anxious and easily gets angry. Her foster mother states she is impatient and seems to be angry and impatient when things do not go her way. Patient states "I will not take meds that make me fat." She does not particularly want medications, but would not mind something to help her with her getting angry. Most of her concerns are her children and the most recent loss of her child due to being with a boyfriend with drug problems that was not supposed to be with her and the child. It is their concern that she easily argues and is angry. Her foster mother states she never had any severe or major problems with her growing up and they both think that she has got a good heart. MENTAL STATUS EXAMINATION: No disturbances of speech. No disturbances of thought process or thought disorder. No loose associations. No abnormal or psychotic thoughts. Judgment and insight are fair. Patient is fully oriented. Recent and remote memory are intact. Attention and concentration intact. Mood is good as of today, affect is bright. IMPRESSION: Generalized anxiety and easily explosive. Will consider some medication for that, perhaps Inderal. DIAGNOSES: Generalized anxiety. Situational stress.
[2016-11-12 18:00] VITALS: BP 137/68
[2016-11-12] MEDS: TOPIRAMATE (TopAMAX) 25 MG TAB PO SCH (21:42)
[2016-11-13 06:24] VITALS: BP 118/94
[2016-11-13] MEDS: MAALOX 30 ML SUSP *UDC PO PRN ×3 (10:44→23:31)
--- NOTE | 2016-11-13 11:06 | IPN ---
DATE: 11/13/2016 Genesis today is mostly discussing wanting a room change. Her mood is good. She has no particular need for medication. She says that her did not show up for court and she may be able to get her two children back. The motivation for this admission was the loss of her third child because of her being with her boyfriend who is a drug user and had been ordered not to be with that child. No change in medication today. MENTAL STATUS EXAMINATION: Patient's mood is good. Affect is bright. She states she did not sleep well due to her roommate. No disturbances of speech. No difficulties of thought disorder. No loose associations. No abnormal or psychotic thoughts. Insight and judgment are fair. Patient is fully oriented. Recent and remote memory are intact. Attention and concentration intact. Mood is good as of today. Affect is bright. IMPRESSION: Generalized anxiety and personality disorder with situational stress.
[2016-11-13 18:00] VITALS: BP 134/80
[2016-11-13] MEDS ORDERED: FAMOTIDINE 20 MG TAB PO SCH (21:00)
[2016-11-13] MEDS: TOPIRAMATE (TopAMAX) 25 MG TAB PO SCH (21:33)
[2016-11-14 06:11] VITALS: BP 112/59
--- NOTE | 2016-11-14 09:04 | IPN ---
DATE: 11/14/2016 I met with Genesis Quintanilla today. She denies suicidal or homicidal ideation. She denies hallucinations, delusions, obsessions, compulsions and phobias. Her speech is normal. Her thought processes are not indicative of any thought disorder. She has no loose associations. She is not having any abnormal or psychotic thoughts. Her judgment and insight are fair. She is fully oriented. Recent and remote memory are intact. No difficulties with attention and concentration. No disturbances of language. Full fund of knowledge. Mood is good. Affect is bright. Patient discussed with me that she has four children, Danny and Pradeep who are with Pedro Luis. He apparently did not show up at court and she may be able to get custody. Susana is with her ex-boyfriend Jaime who she has visitation with, and James is her baby that was recently taken from her for being with her present boyfriend who is not suppose to be near the child. Patient would like to be discharged and since she does not appear to be a danger to herself or others, I will discuss with treatment team the possibility of discharge. IMPRESSION: Generalized anxiety. Situational stress. MTDD
[2016-11-14 10:11] LABS: BASO % 0.4 % (0.0-1.0); EOS # 0.2 K/mm3 (0.0-0.50); EOS % 3.8 % (0.0-3.0); LARGE UNSTAINED CELL # 0.2 K/mm3 (0.0-0.4); LARGE UNSTAINED CELL % 3.1 % (0.0-4.0); LYMPH # 1.7 K/mm3 (1.5-4.5); MEAN CORPUSCULAR HEMOGLOBIN 27.1 pg (27.0-33.0); MEAN CORPUSCULAR VOLUME 82.2 fl (80.0-96.0); MONO # 0.6 K/mm3 (0.0-0.8); MONO % 8.4 % (0.0-5.0); NEUTROPHILS # 3.8 K/mm3 (1.8-7.7); NEUTROPHILS % 58.3 % (36.0-66.0); PLATELET COUNT, AUTOMATED 236 k/mm3 (150-450); RED CELL DISTRIBUTION WIDTH 13.9 % (11.5-14.5); WHITE BLOOD COUNT 6.5 K/mm3 (4.0-10.0)
--- NOTE | 2016-11-14 10:12 | IPNPDOC ---
Subjective Date Seen The patient was seen on 11/14/16. Subjective Chief Complaint/HPI The patient is a 31-year-old female admitted with a reason for visit of Adjustment Disorder. Events since last encounter Requested to evaluate patient for loose stools. Patient states she vomited 1 this morning. She is drinking fluids and she ate some breakfast. No fevers or chills. Patient states symptoms started this morning. Report some abdominal cramping. ENT: Denies: Dysphagia, Ear Pain, Head Aches Pulmonary: Denies: Cough, Dyspnea Cardiovascular: Denies: Chest Pain, Lt Headedness, Orthopnea, Palpitations, Paroxysmal Noc. Dyspnea Genitourinary: Denies: Dysuria, Frequency, Incontinence, Retention Objective Physical Examination General Exam: Positive: Alert Eye Exam: Positive: PERRLA Chest Exam: Positive: Clear to auscultation, Normal air movement Heart Exam: Positive: Normal S1, Normal S2, Rate Normal, Regular Rhythm, Negative: Murmurs, Rubs Abdomen Exam: Positive: Normal bowel sounds, Soft, Tenderness (mild tenderness with palpation in the lower abdominal area), Negative: Hepatospenomegaly Neuro Exam: Positive: Cranial Nerves 3-12 NL, Normal Gait, Normal Speech, Reflexes 2+ Assessment /Plan Problems (1) Loose stools Status: Acute Problem Text: * CBC/CMP pending * UA/urine culture pending * GI panel pending * Barron diet, plenty of fluids. * Monitor (2) GERD (gastroesophageal reflux disease) Status: Chronic Response to Treatment: Stable Problem Text: * Continue with Pepcid Plan/VTE VTE Prophylaxis Ordered?: No (ambulatory) Disposition As per psychiatry VS, I&O, 24H, [facility] Vital Signs/I&O Vital Signs Date Time Temp Pulse Resp B/P Pulse Ox O2 Delivery O2 Flow Rate FiO2 11/14/16 06:11 99.2 67 16 112/59 11/13/16 06:24 Room Air 11/11/16 04:44 97 Laboratory Data 24H LABS Laboratory Tests 2 11/13/16 16:56: Bedside Glucose (Misc Panel) 100 11/14/16 05:43: Bedside Glucose (Misc Panel) 117H 11/14/16 08:53: Tari Rosado Nov 14, 2016 10:12
[2016-11-14 10:27] LABS: ALBUMIN 3.5 GM/DL (3.2-5.2); ALBUMIN/GLOBULIN RATIO 0.88 (1.00-1.93); ALKALINE PHOSPHATASE 131 U/L (45-117); ALT/SGPT 43 U/L (12-78); ANION GAP 11 MEQ/L (8-16); AST/SGOT 37 U/L (15-37); BILIRUBIN,TOTAL 0.2 MG/DL (0.2-1.0); BLOOD UREA NITROGEN 16 MG/DL (7-18); CALCIUM LEVEL 8.5 MG/DL (8.5-10.1); CARBON DIOXIDE LEVEL 21 MEQ/L (21-32); CHLORIDE LEVEL 108 MEQ/L (98-107); GLOMERULAR FILTRATION RATE > 60.0 (>60); GLUCOSE, FASTING 114 MG/DL (70-105); POTASSIUM SERUM 4.3 MEQ/L (3.5-5.1); SODIUM LEVEL 140 MEQ/L (136-145); TOTAL PROTEIN 7.5 GM/DL (6.4-8.2)
[2016-11-14] MEDS ORDERED: TOPA25TA10 PO (13:08)
[2016-11-14] MEDS ORDERED: FAMO20TA PO (15:04)
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
== END 2016-11-14 15:15 | disposition home or self-care (01) | DRG 754 ==
LOC: M ED 20:48 → M ED INP 11-11 03:44 → M PSY 11-11 04:57
PROVIDERS: ADMIT Psychiatry & Neurology Child & Adolescent Psychiatry; ATTEND Psychiatry & Neurology Child & Adolescent Psychiatry
DX: F32.9 Major depressive disorder, single episode, unspecified (principal); J45.909 Unspecified asthma, uncomplicated; H91.92 Unspecified hearing loss, left ear; G47.33 Obstructive sleep apnea (adult) (pediatric); R56.9 Unspecified convulsions; G43.709 Chronic migraine without aura, not intractable, without status migrainosus; F41.9 Anxiety disorder, unspecified; K58.9 Irritable bowel syndrome, unspecified; F60.9 Personality disorder, unspecified; Z86.14 Personal history of Methicillin resistant Staphylococcus aureus infection; Z81.8 Family history of other mental and behavioral disorders; Z63.8 Other specified problems related to primary support group

== ENCOUNTER → 2016-12-29 | Outpatient (REF) | payer OTHER ==
[~2016-12-29] MED LIST changes: +ALBU17IN INH; +EPIP0.3I2 IJ; +FAMO20TA PO; +TOPA25TA10 PO
== END ==
LOC: M LAB REF 09:35
PROVIDERS: ATTEND Physician Assistant
DX: N76.0 Acute vaginitis (principal)

== ENCOUNTER → 2017-01-19 | Outpatient (REF) | payer OTHER | LOC: M LAB REF 12:25 | PROVIDERS: ATTEND Nurse Practitioner Family | DX: R10.32 Left lower quadrant pain (principal) ==

== ENCOUNTER → 2017-02-08 | Outpatient (CLI) | payer OTHER ==
[2017-02-08 17:06] LABS: ALBUMIN 3.6 GM/DL (3.2-5.2); ALBUMIN/GLOBULIN RATIO 0.88 (1.00-1.93); ALKALINE PHOSPHATASE 96 U/L (45-117); ALT/SGPT 62 U/L (12-78); ANION GAP 10 MEQ/L (8-16); AST/SGOT 57 U/L (15-37); BILIRUBIN,TOTAL 0.3 MG/DL (0.2-1.0); BLOOD UREA NITROGEN 8 MG/DL (7-18); CALCIUM LEVEL 8.7 MG/DL (8.5-10.1); CARBON DIOXIDE LEVEL 25 MEQ/L (21-32); CHLORIDE LEVEL 106 MEQ/L (98-107); CHOLESTEROL LEVEL 161 MG/DL (<200); CREATININE FOR GFR 0.92 MG/DL (0.55-1.02); GLOMERULAR FILTRATION RATE > 60.0 (>60); GLUCOSE, FASTING 121 MG/DL (70-105); POTASSIUM SERUM 3.7 MEQ/L (3.5-5.1); SODIUM LEVEL 141 MEQ/L (136-145); TOTAL PROTEIN 7.7 GM/DL (6.4-8.2); TRIGLYCERIDES LEVEL 172 MG/DL (<150)
[2017-02-08 19:00] LABS: MEAN CORPUSCULAR HEMOGLOBIN 29.1 pg (27.0-33.0); MEAN CORPUSCULAR HGB CONC 33.9 g/dl (32.0-36.5); MEAN CORPUSCULAR VOLUME 85.8 fl (80.0-96.0); RED CELL DISTRIBUTION WIDTH 13.4 % (11.5-14.5); WHITE BLOOD COUNT 5.7 K/mm3 (4.0-10.0)
== END ==
LOC: M WUC 13:43
PROVIDERS: ATTEND Nurse Practitioner Family
DX: R25.1 Tremor, unspecified (principal); D64.9 Anemia, unspecified; Z13.220 Encounter for screening for lipoid disorders

== ENCOUNTER → 2017-05-19 | Outpatient (CLI) | payer OTHER ==
[~2017-05-19] MED LIST changes: +PERC5TAB12 PO; -PERC5TAB6 PO; -PROA1AER INH; +PROAAER10 INH; +PROT1TAB2 PO; +TOPA1TAB PO; -TOPA25TA10 PO
[2017-05-19 17:36] LABS: ALBUMIN 3.6 GM/DL (3.2-5.2); ALKALINE PHOSPHATASE 108 U/L (45-117); ALT/SGPT 111 U/L (12-78); ANION GAP 5 MEQ/L (8-16); AST/SGOT 136 U/L (15-37); BILIRUBIN,TOTAL 0.3 MG/DL (0.2-1.0); BLOOD UREA NITROGEN 17 MG/DL (7-18); CALCIUM LEVEL 8.8 MG/DL (8.5-10.1); CARBON DIOXIDE LEVEL 26 MEQ/L (21-32); CHLORIDE LEVEL 108 MEQ/L (98-107); CREATININE FOR GFR 0.98 MG/DL (0.55-1.02); GLOMERULAR FILTRATION RATE > 60.0 (>60); GLUCOSE, FASTING 147 MG/DL (70-105); POTASSIUM SERUM 3.9 MEQ/L (3.5-5.1); SODIUM LEVEL 139 MEQ/L (136-145); TOTAL PROTEIN 8.1 GM/DL (6.4-8.2)
[2017-05-19 18:06] LABS: BASO % 0.5 % (0.0-1.0); EOS # 0.2 10^3/uL (0.0-0.50); EOS % 3.2 % (0.0-3.0); IMMATURE GRANULOCYTE % 0.2 % (0-0); LYMPH # 1.7 10^3/uL (1.5-4.5); LYMPH % 29.3 % (24.0-44.0); MEAN CORPUSCULAR HEMOGLOBIN 28.1 pg (27.0-33.0); MEAN CORPUSCULAR HGB CONC 32.4 g/dl (32.0-36.5); MEAN CORPUSCULAR VOLUME 86.6 fl (80.0-96.0); MONO # 0.5 10^3/uL (0.0-0.8); NEUTROPHILS # 3.3 10^3/uL (1.8-7.7); NEUTROPHILS % 57.8 % (36.0-66.0); PLATELET COUNT, AUTOMATED 221 10^3/uL (150-450); RED CELL DISTRIBUTION WIDTH 12.6 % (11.5-14.5); WHITE BLOOD COUNT 5.7 10^3/uL (4.0-10.0)
[2017-05-19 18:11] LABS: ADD MORPHOLOGY? NO
== END ==
LOC: M WUC 13:47
PROVIDERS: ATTEND Surgery
DX: Z01.812 Encounter for preprocedural laboratory examination (principal); G47.33 Obstructive sleep apnea (adult) (pediatric); E66.01 Morbid (severe) obesity due to excess calories

== ENCOUNTER → 2017-05-23 | Outpatient (CLI) | payer OTHER ==
[2017-05-23 19:47] LABS: ALBUMIN 3.6 GM/DL (3.2-5.2); ALBUMIN/GLOBULIN RATIO 0.92 (1.00-1.93); ALKALINE PHOSPHATASE 111 U/L (45-117); ALT/SGPT 146 U/L (12-78); ANION GAP 9 MEQ/L (8-16); AST/SGOT 178 U/L (15-37); BILIRUBIN,TOTAL 0.3 MG/DL (0.2-1.0); BLOOD UREA NITROGEN 15 MG/DL (7-18); CALCIUM LEVEL 9.1 MG/DL (8.5-10.1); CARBON DIOXIDE LEVEL 24 MEQ/L (21-32); CHLORIDE LEVEL 105 MEQ/L (98-107); CREATININE FOR GFR 0.96 MG/DL (0.55-1.02); FERRITIN 226 NG/ML (8-252); GLOMERULAR FILTRATION RATE > 60.0 (>60); GLUCOSE, FASTING 143 MG/DL (70-105); POTASSIUM SERUM 3.9 MEQ/L (3.5-5.1); SODIUM LEVEL 138 MEQ/L (136-145); TOTAL PROTEIN 7.5 GM/DL (6.4-8.2)
[2017-05-23 20:12] LABS: INR 1.16
[2017-05-23 20:14] LABS: BASO % 0.5 % (0.0-1.0); EOS # 0.1 10^3/uL (0.0-0.50); EOS % 2.4 % (0.0-3.0); IMMATURE GRANULOCYTE % 0.2 % (0-0); LYMPH # 1.8 10^3/uL (1.5-4.5); LYMPH % 31.1 % (24.0-44.0); MEAN CORPUSCULAR HEMOGLOBIN 28.3 pg (27.0-33.0); MEAN CORPUSCULAR HGB CONC 32.5 g/dl (32.0-36.5); MONO # 0.5 10^3/uL (0.0-0.8); MONO % 7.7 % (0.0-5.0); NEUTROPHILS # 3.4 10^3/uL (1.8-7.7); NEUTROPHILS % 58.1 % (36.0-66.0); PLATELET COUNT, AUTOMATED 222 10^3/uL (150-450); RED CELL DISTRIBUTION WIDTH 12.6 % (11.5-14.5); WHITE BLOOD COUNT 5.9 10^3/uL (4.0-10.0)
[2017-05-23 20:58] LABS: ADD MORPHOLOGY? NO
== END ==
LOC: M WUC 16:04
PROVIDERS: ATTEND Nurse Practitioner Family
DX: Z01.818 Encounter for other preprocedural examination (principal)

== ENCOUNTER 2017-07-18 16:59 | Emergency (ER) | payer OTHER ==
[~2017-07-18] VITALS: Ht 165.1 cm; Wt 90.9 kg
[2017-07-18] MEDS ORDERED: OMEP40CA2 PO (17:23)
[2017-07-18] MEDS ORDERED: BACT800T5 PO (19:34)
[2017-07-18] MEDS ORDERED: BACTRIM 160MG/800MG DS TAB PO ONE (19:45)
[2017-07-18] MEDS ORDERED: NORCO, ANEXSIA 5/325MG TABLET (HYDROcodone/ACETAMINOPHEN) PO ONE (19:45)
[2017-07-18] MEDS ORDERED: NORCO 5/325MG TABLET (BULK FOR ED) PO ONE (19:45)
[2017-07-18 19:47] VITALS: BP 133/76
== END 2017-07-18 19:49 | disposition home or self-care (01) ==
LOC: M ED 16:59
DX: L03.311 Cellulitis of abdominal wall (principal); E11.9 Type 2 diabetes mellitus without complications; I10 Essential (primary) hypertension; Z98.84 Bariatric surgery status

== ENCOUNTER 2017-09-27 12:50 | Emergency (ER) | payer MEDICAID, SELFPAY, OTHER ==
[2017-09-27] MEDS: NS 1,000 ML IV ×2 (14:00)
[2017-09-27 14:25] LABS: BASO % 0.7 % (0.0-1.0); EOS # 0.1 10^3/uL (0.0-0.50); EOS % 2.6 % (0.0-3.0); HEMATOCRIT 37.7 % (36.0-47.0); HEMOGLOBIN 12.3 g/dl (12.0-16.0); IMMATURE GRANULOCYTE % 0.2 % (0-0); LYMPH # 1.7 10^3/uL (1.5-4.5); LYMPH % 32.3 % (24.0-44.0); MEAN CORPUSCULAR HEMOGLOBIN 28.3 pg (27.0-33.0); MEAN CORPUSCULAR HGB CONC 32.6 g/dl (32.0-36.5); MEAN CORPUSCULAR VOLUME 86.9 fl (80.0-96.0); MONO # 0.6 10^3/uL (0.0-0.8); MONO % 10.7 % (0.0-5.0); NEUTROPHILS # 2.9 10^3/uL (1.8-7.7); NEUTROPHILS % 53.5 % (36.0-66.0); PLATELET COUNT, AUTOMATED 198 10^3/uL (150-450); RED BLOOD COUNT 4.34 10^6/uL (4.00-5.40); RED CELL DISTRIBUTION WIDTH 13.1 % (11.5-14.5); WHITE BLOOD COUNT 5.4 10^3/uL (4.0-10.0)
[2017-09-27 14:44] LABS: ANION GAP 7 MEQ/L (8-16); BLOOD UREA NITROGEN 9 MG/DL (7-18); CALCIUM LEVEL 8.7 MG/DL (8.5-10.1); CARBON DIOXIDE LEVEL 28 MEQ/L (21-32); CHLORIDE LEVEL 107 MEQ/L (98-107); CREATININE FOR GFR 0.79 MG/DL (0.55-1.30); GLOMERULAR FILTRATION RATE > 60.0 (>60); GLUCOSE, FASTING 96 MG/DL (70-100); HCG, SERUM QUANTITATIVE < 1.0 MIU/ML; SODIUM LEVEL 142 MEQ/L (136-145)
== END 2017-09-27 17:05 | disposition home or self-care (01) ==
LOC: M ED 12:50
DX: N93.8 Other specified abnormal uterine and vaginal bleeding (principal); I10 Essential (primary) hypertension; J45.909 Unspecified asthma, uncomplicated; E11.9 Type 2 diabetes mellitus without complications; R56.9 Unspecified convulsions; F41.9 Anxiety disorder, unspecified; F33.9 Major depressive disorder, recurrent, unspecified; Z98.84 Bariatric surgery status; Z88.1 Allergy status to other antibiotic agents; Z88.0 Allergy status to penicillin; Z88.8 Allergy status to other drugs, medicaments and biological substances; Z91.013 Allergy to seafood; Z91.030 Bee allergy status; Z91.040 Latex allergy status
CPT/HCPCS: 84702

== ENCOUNTER 2017-10-03 15:11 | Emergency (ER) | payer MEDICAID, SELFPAY, OTHER ==
[2017-10-03 17:00] LABS: INFLUENZA A AMPLIFICATION POSITIVE (NEGATIVE); INFLUENZA B AMPLIFICATION NEGATIVE (NEGATIVE)
[2017-10-03 18:10] LABS: BASO % 0.3 % (0.0-1.0); HEMATOCRIT 35.9 % (36.0-47.0); HEMOGLOBIN 11.8 g/dl (12.0-16.0); LYMPH # 0.6 10^3/uL (1.5-4.5); LYMPH % 18.3 % (24.0-44.0); MEAN CORPUSCULAR HEMOGLOBIN 28.2 pg (27.0-33.0); MEAN CORPUSCULAR HGB CONC 32.9 g/dl (32.0-36.5); MEAN CORPUSCULAR VOLUME 85.7 fl (80.0-96.0); MONO # 0.7 10^3/uL (0.0-0.8); MONO % 21.5 % (0.0-5.0); NEUTROPHILS # 1.8 10^3/uL (1.8-7.7); NEUTROPHILS % 58.9 % (36.0-66.0); PLATELET COUNT, AUTOMATED 149 10^3/uL (150-450); RED BLOOD COUNT 4.19 10^6/uL (4.00-5.40); RED CELL DISTRIBUTION WIDTH 13.2 % (11.5-14.5); WHITE BLOOD COUNT 3.1 10^3/uL (4.0-10.0)
[2017-10-03] MEDS: ONDANSETRON 4MG/2ML VIAL (J2405) IV ×2 (18:15)
[2017-10-03] MEDS: KETOROLAC 30 MG/ML VIAL (J1885) IV ×2 (18:15)
[2017-10-03] MEDS: NS 1,000 ML IV ×4 (18:16→20:14)
[2017-10-03 18:37] LABS: ANION GAP 10 MEQ/L (8-16); BLOOD UREA NITROGEN 8 MG/DL (7-18); CARBON DIOXIDE LEVEL 24 MEQ/L (21-32); CHLORIDE LEVEL 105 MEQ/L (98-107); CPK CREATINE PHOSPHOKINASE 79 U/L (26-192); CREATININE FOR GFR 0.87 MG/DL (0.55-1.30); GLOMERULAR FILTRATION RATE > 60.0 (>60); GLUCOSE, FASTING 95 MG/DL (70-100); POTASSIUM SERUM 3.7 MEQ/L (3.5-5.1); SODIUM LEVEL 139 MEQ/L (136-145); TROPONIN I < 0.02 NG/ML (< 0.10)
[2017-10-03 18:38] LABS: MB/CK RELATIVE INDEX 1.26 (< OR =4)
[2017-10-03] MEDS: BENZONATATE 100 MG CAP PO ×2 (21:03)
[2017-10-03] MEDS: OSELTAMIVIR PHOSPHATE 75 MG CAP (TAMIFLU) PO ×2 (21:03)
== END 2017-10-03 22:57 | disposition home or self-care (01) ==
LOC: M ED 15:11
DX: J09.X2 Influenza due to identified novel influenza A virus with other respiratory manifestations (principal); I10 Essential (primary) hypertension; J45.909 Unspecified asthma, uncomplicated; R56.9 Unspecified convulsions; G47.33 Obstructive sleep apnea (adult) (pediatric); I25.2 Old myocardial infarction; Z86.718 Personal history of other venous thrombosis and embolism; Z98.84 Bariatric surgery status; Z79.899 Other long term (current) drug therapy; Z88.0 Allergy status to penicillin; Z88.1 Allergy status to other antibiotic agents; Z88.8 Allergy status to other drugs, medicaments and biological substances; Z91.013 Allergy to seafood; Z91.040 Latex allergy status
CPT/HCPCS: J2405

== ENCOUNTER → 2018-03-20 | Outpatient (CLI) | payer OTHER ==
[2018-03-20 19:41] LABS: HCG, SERUM QUANTITATIVE < 1.0 MIU/ML
== END ==
LOC: M WUC 16:58
DX: R30.0 Dysuria (principal)
CPT/HCPCS: 84702

== ENCOUNTER → 2018-06-18 | Outpatient (REF) | payer MEDICAID ==
[2018-06-18 18:42] LABS: HEMATOCRIT 35.9 % (36.0-47.0); HEMOGLOBIN 12.1 g/dl (12.0-15.5); MEAN CORPUSCULAR HEMOGLOBIN 29.2 pg (27.0-33.0); MEAN CORPUSCULAR HGB CONC 33.7 g/dl (32.0-36.5); MEAN CORPUSCULAR VOLUME 86.5 fl (80.0-96.0); PLATELET COUNT, AUTOMATED 224 10^3/uL (150-450); RED BLOOD COUNT 4.15 10^6/uL (4.00-5.40); RED CELL DISTRIBUTION WIDTH 11.9 % (11.5-14.5); WHITE BLOOD COUNT 5.5 10^3/uL (4.0-10.0)
[2018-06-18 19:16] LABS: HCG, SERUM QUANTITATIVE 15017 MIU/ML
[2018-06-18 19:18] LABS: RUBELLA IgG QUALITATIVE IMMUNE (IMMUNE)
[2018-06-18 19:47] LABS: HIV 1&2 SCREEN CENTAUR NEGATIVE (NEGATIVE)
[2018-06-20 10:39] LABS: HBsAg Prenatal NEGATIVE (NEGATIVE)
[2018-06-20 10:59] LABS: HEPATITIS C VIRUS ABY INDEX < 0.0 INDEX (<0.8)
== END ==
LOC: M LAB REF 17:13
DX: O36.80X0 Pregnancy with inconclusive fetal viability, not applicable or unspecified (principal)
CPT/HCPCS: 86762

== ENCOUNTER 2018-06-22 15:17 | Emergency (ER) | payer MEDICAID ==
[2018-06-22 16:10] LABS: AMORPHOUS SEDIMENT RFX SMALL (NEGATIVE); CALCIUM OXALATE CRYSTALS RFX LARGE; KETONE, URINE AUTO RFX NEGATIVE (NEGATIVE); LEUKOCYTE ESTERASE UR AUTO RFX NEGATIVE (NEGATIVE); MUCUS, URINE RFX SMALL (NEGATIVE); NITRITE, URINE AUTO RFX NEGATIVE (NEGATIVE); RBC, URINE AUTO RFX 2 /HPF (0-3); SPECIFIC GRAVITY UR AUTO RFX 1.028 (1.002-1.035); SQUAM EPITHELIAL CELL UR AURFX 5 /HPF (0-6); WBC, URINE AUTO RFX 1 /HPF (0-3)
[2018-06-22 16:15] LABS: BASO % 0.3 % (0.0-1.0); EOS # 0.1 10^3/uL (0.0-0.50); EOS % 1.4 % (0.0-3.0); HEMATOCRIT 34.9 % (36.0-47.0); HEMOGLOBIN 11.7 g/dl (12.0-15.5); IMMATURE GRANULOCYTE % 0.2 % (0-3.0); LYMPH # 1.8 10^3/uL (1.5-4.5); MEAN CORPUSCULAR HEMOGLOBIN 29.5 pg (27.0-33.0); MEAN CORPUSCULAR HGB CONC 33.5 g/dl (32.0-36.5); MEAN CORPUSCULAR VOLUME 87.9 fl (80.0-96.0); MONO # 0.7 10^3/uL (0.0-0.8); MONO % 10.2 % (0.0-5.0); NEUTROPHILS # 3.9 10^3/uL (1.8-7.7); NEUTROPHILS % 59.9 % (36.0-66.0); PLATELET COUNT, AUTOMATED 198 10^3/uL (150-450); RED BLOOD COUNT 3.97 10^6/uL (4.00-5.40); RED CELL DISTRIBUTION WIDTH 11.9 % (11.5-14.5); WHITE BLOOD COUNT 6.5 10^3/uL (4.0-10.0)
[2018-06-22] MEDS: METOCLOPRAMIDE INJ 10MG/2ML VIAL (J2765) IV (16:48)
[2018-06-22] MEDS: NS 1,000 ML IV (16:48)
[2018-06-22 16:57] LABS: ANION GAP 9 MEQ/L (8-16); BLOOD UREA NITROGEN 9 MG/DL (7-18); CALCIUM LEVEL 8.7 MG/DL (8.5-10.1); CARBON DIOXIDE LEVEL 25 MEQ/L (21-32); CHLORIDE LEVEL 106 MEQ/L (98-107); CREATININE FOR GFR 0.82 MG/DL (0.55-1.30); GLOMERULAR FILTRATION RATE > 60.0 (>60); GLUCOSE, FASTING 88 MG/DL (70-100); HCG, SERUM QUANTITATIVE 29725 MIU/ML; SODIUM LEVEL 140 MEQ/L (136-145)
== END 2018-06-22 17:50 | disposition home or self-care (01) ==
LOC: M ED 15:17
DX: O21.9 Vomiting of pregnancy, unspecified (principal); O99.89 Other specified diseases and conditions complicating pregnancy, childbirth and the puerperium; R10.2 Pelvic and perineal pain; R56.9 Unspecified convulsions; Z3A.01 Less than 8 weeks gestation of pregnancy; O24.011 Pre-existing type 1 diabetes mellitus, in pregnancy, first trimester; O99.511 Diseases of the respiratory system complicating pregnancy, first trimester; O99.841 Bariatric surgery status complicating pregnancy, first trimester; Z86.718 Personal history of other venous thrombosis and embolism; Z79.899 Other long term (current) drug therapy; Z88.6 Allergy status to analgesic agent; Z91.030 Bee allergy status; Z91.040 Latex allergy status; Z91.013 Allergy to seafood; Z88.0 Allergy status to penicillin; Z88.1 Allergy status to other antibiotic agents
CPT/HCPCS: J2765

== ENCOUNTER 2018-07-03 11:36 | Emergency (ER) | payer MEDICAID ==
[2018-07-03] MEDS: NS 1,000 ML IV (14:30)
[2018-07-03] MEDS: ONDANSETRON 4MG/2ML VIAL (J2405) IV (14:30)
[2018-07-03 14:54] LABS: BASO % 0.3 % (0.0-1.0); EOS % 0.5 % (0.0-3.0); HEMATOCRIT 34.6 % (36.0-47.0); HEMOGLOBIN 11.6 g/dl (12.0-15.5); IMMATURE GRANULOCYTE % 0.3 % (0-3.0); LYMPH # 1.9 10^3/uL (1.5-4.5); LYMPH % 25.3 % (24.0-44.0); MEAN CORPUSCULAR HEMOGLOBIN 29.7 pg (27.0-33.0); MEAN CORPUSCULAR HGB CONC 33.5 g/dl (32.0-36.5); MEAN CORPUSCULAR VOLUME 88.7 fl (80.0-96.0); MONO # 0.6 10^3/uL (0.0-0.8); MONO % 8.6 % (0.0-5.0); NEUTROPHILS # 4.9 10^3/uL (1.8-7.7); PLATELET COUNT, AUTOMATED 198 10^3/uL (150-450); RED CELL DISTRIBUTION WIDTH 11.9 % (11.5-14.5); WHITE BLOOD COUNT 7.5 10^3/uL (4.0-10.0)
[2018-07-03 14:55] LABS: CALCIUM OXALATE CRYSTALS RFX SMALL; KETONE, URINE AUTO RFX NEGATIVE (NEGATIVE); LEUKOCYTE ESTERASE UR AUTO RFX NEGATIVE (NEGATIVE); MUCUS, URINE RFX MODERATE (NEGATIVE); NITRITE, URINE AUTO RFX NEGATIVE (NEGATIVE); RBC, URINE AUTO RFX 3 /HPF (0-3); SPECIFIC GRAVITY UR AUTO RFX 1.028 (1.002-1.035); SQUAM EPITHELIAL CELL UR AURFX 12 /HPF (0-6); WBC, URINE AUTO RFX 2 /HPF (0-3)
[2018-07-03 15:18] LABS: ALBUMIN 3.3 GM/DL (3.2-5.2); ALBUMIN/GLOBULIN RATIO 0.94 (1.00-1.93); ALKALINE PHOSPHATASE 65 U/L (45-117); ALT/SGPT 12 U/L (12-78); ANION GAP 7 MEQ/L (8-16); AST/SGOT 23 U/L (7-37); BILIRUBIN,DIRECT < 0.1 MG/DL (0.0-0.2); BILIRUBIN,TOTAL 0.3 MG/DL (0.2-1.0); BLOOD UREA NITROGEN 9 MG/DL (7-18); CALCIUM LEVEL 8.7 MG/DL (8.5-10.1); CARBON DIOXIDE LEVEL 25 MEQ/L (21-32); CHLORIDE LEVEL 106 MEQ/L (98-107); GLOMERULAR FILTRATION RATE > 60.0 (>60); GLUCOSE, FASTING 89 MG/DL (70-100); LIPASE 191 U/L (73-393); SODIUM LEVEL 138 MEQ/L (136-145); TOTAL PROTEIN 6.8 GM/DL (6.4-8.2)
== END 2018-07-03 15:36 | disposition home or self-care (01) ==
LOC: M ED 11:36
DX: O20.0 Threatened abortion (principal); O21.9 Vomiting of pregnancy, unspecified; O24.311 Unspecified pre-existing diabetes mellitus in pregnancy, first trimester; E11.9 Type 2 diabetes mellitus without complications; O99.351 Diseases of the nervous system complicating pregnancy, first trimester; G47.33 Obstructive sleep apnea (adult) (pediatric); O99.841 Bariatric surgery status complicating pregnancy, first trimester; Z3A.01 Less than 8 weeks gestation of pregnancy; Z88.6 Allergy status to analgesic agent; Z88.1 Allergy status to other antibiotic agents; Z88.8 Allergy status to other drugs, medicaments and biological substances; Z88.0 Allergy status to penicillin; Z91.013 Allergy to seafood; Z91.040 Latex allergy status; Z91.030 Bee allergy status
CPT/HCPCS: J2405

== ENCOUNTER → 2018-07-04 | Outpatient (REF) | payer OTHER ==
[2018-07-04 14:21] LABS: THYROID STIMULATING HORMONE 0.498 uIU/ML (0.358-3.740)
[2018-07-04 14:21] LABS: FREE T4 1.12 NG/DL (0.76-1.46)
[2018-07-04 14:23] LABS: FOLATE 9.2 NG/ML; VITAMIN B12 LEVEL 340 PG/ML
== END ==
LOC: M LAB REF 12:55
DX: Z34.81 Encounter for supervision of other normal pregnancy, first trimester (principal); O99.841 Bariatric surgery status complicating pregnancy, first trimester; R11.2 Nausea with vomiting, unspecified

== ENCOUNTER 2018-08-07 17:30 | Emergency (ER) | payer OTHER ==
[2018-08-07 18:46] LABS: APPEARANCE, URINE HAZY (CLEAR); BACTERIA, URINE AUTO NEGATIVE (NEGATIVE); BILIRUBIN, URINE AUTO NEGATIVE (NEGATIVE); BLOOD, URINE BLOOD NEGATIVE (NEGATIVE); COLOR, URINE YELLOW (YELLOW); GLUCOSE, URINE (UA) AUTO NEGATIVE (NEGATIVE); KETONE, URINE AUTO TRACE mg/dL (NEGATIVE); LEUKOCYTE ESTERASE, URINE AUTO TRACE (NEGATIVE); MUCUS, URINE SMALL (NEGATIVE); NITRITE, URINE AUTO NEGATIVE (NEGATIVE); PROTEIN, URINE AUTO NEGATIVE (NEGATIVE); RBC, URINE AUTO 2 /HPF (0-3); SPECIFIC GRAVITY URINE AUTO 1.029 (1.002-1.035); SQUAMOUS EPITHELIAL CELL UR AU 6 /HPF (0-6); WBC, URINE AUTO 6 /HPF (0-3)
[2018-08-07 18:52] LABS: HEMATOCRIT 34.3 % (36.0-47.0); MEAN CORPUSCULAR HEMOGLOBIN 30.3 pg (27.0-33.0); MEAN CORPUSCULAR VOLUME 86.6 fl (80.0-96.0); PLATELET COUNT, AUTOMATED 198 10^3/uL (150-450); RED BLOOD COUNT 3.96 10^6/uL (4.00-5.40); RED CELL DISTRIBUTION WIDTH 12.3 % (11.5-14.5); WHITE BLOOD COUNT 7.7 10^3/uL (4.0-10.0)
[2018-08-07 19:05] LABS: INR 1.05; PROTHROMBIN TIME 13.9 SECONDS (12.1-14.4)
[2018-08-07 19:16] LABS: ANION GAP 9 MEQ/L (8-16); BLOOD UREA NITROGEN 16 MG/DL (7-18); CALCIUM LEVEL 8.3 MG/DL (8.5-10.1); CARBON DIOXIDE LEVEL 24 MEQ/L (21-32); CHLORIDE LEVEL 108 MEQ/L (98-107); GLOMERULAR FILTRATION RATE > 60.0 (>60); GLUCOSE, FASTING 95 MG/DL (70-100); POTASSIUM SERUM 3.9 MEQ/L (3.5-5.1); SODIUM LEVEL 141 MEQ/L (136-145)
== END 2018-08-07 20:16 | disposition home or self-care (01) ==
LOC: M ED 20:16
DX: S30.1XXA Contusion of abdominal wall, initial encounter (principal); S00.83XA Contusion of other part of head, initial encounter; V43.52XA Car driver injured in collision with other type car in traffic accident, initial encounter; Y92.9 Unspecified place or not applicable; Y93.9 Activity, unspecified; Y99.9 Unspecified external cause status; O99.511 Diseases of the respiratory system complicating pregnancy, first trimester; O99.841 Bariatric surgery status complicating pregnancy, first trimester; Z3A.13 13 weeks gestation of pregnancy; Z79.899 Other long term (current) drug therapy; Z88.6 Allergy status to analgesic agent; Z88.0 Allergy status to penicillin; Z88.1 Allergy status to other antibiotic agents; Z91.013 Allergy to seafood; Z91.040 Latex allergy status
CPT/HCPCS: 76700

== ENCOUNTER 2018-11-29 12:05 | Emergency (ER) | payer OTHER ==
[~2018-11-29] VITALS: Ht 167.6 cm; Wt 76.8 kg
[~2018-11-29 12:05] MED LIST changes: -ACET50TA PO; +BACT800T5 PO; +MAPA500T17 PO; +MAPA500T2 PO; +MUPI1OIN2 EXT; -MUPI2OI EXT; +OMEP40CA2 PO; +OSEL75CA PO; +PRENMIS3 PO; +REGL10TA6 PO; +TESS100C PO; +ZOFR4TAB14 PO
[2018-11-29] MEDS ORDERED: LIDOCAINE 2% W/EPIN INJ 20ML **PRES FREE INJ ONE (13:30)
[2018-11-29 13:48] VITALS: BP 130/63
== END 2018-11-29 13:48 | disposition home or self-care (01) ==
LOC: M ED 12:05
DX: O99.89 Other specified diseases and conditions complicating pregnancy, childbirth and the puerperium (principal); K08.89 Other specified disorders of teeth and supporting structures; R68.84 Jaw pain; O24.112 Pre-existing type 2 diabetes mellitus, in pregnancy, second trimester; O99.512 Diseases of the respiratory system complicating pregnancy, second trimester; J45.909 Unspecified asthma, uncomplicated; O99.352 Diseases of the nervous system complicating pregnancy, second trimester; R56.9 Unspecified convulsions; O99.62 Diseases of the digestive system complicating childbirth; K21.9 Gastro-esophageal reflux disease without esophagitis; O99.342 Other mental disorders complicating pregnancy, second trimester; F41.9 Anxiety disorder, unspecified; F32.9 Major depressive disorder, single episode, unspecified; O99.842 Bariatric surgery status complicating pregnancy, second trimester; M54.40 Lumbago with sciatica, unspecified side; H90.12 Conductive hearing loss, unilateral, left ear, with unrestricted hearing on the contralateral side; Z3A.28 28 weeks gestation of pregnancy

== ENCOUNTER 2018-12-18 10:14 | Outpatient (CLI) | payer OTHER ==
[~2018-12-18] VITALS: Ht 165.1 cm; Wt 81.6 kg
[2018-12-18 10:35] VITALS: BP 101/58
[2018-12-18 11:36] LABS: APPEARANCE, URINE CLOUDY (CLEAR); BACTERIA, URINE AUTO NEGATIVE (NEGATIVE); BILIRUBIN, URINE AUTO NEGATIVE (NEGATIVE); BLOOD, URINE BLOOD NEGATIVE (NEGATIVE); COLOR, URINE AMBER (YELLOW); GLUCOSE, URINE (UA) AUTO NEGATIVE (NEGATIVE); KETONE, URINE AUTO TRACE mg/dL (NEGATIVE); LEUKOCYTE ESTERASE, URINE AUTO 1+ (NEGATIVE); MUCUS, URINE SMALL (NEGATIVE); NITRITE, URINE AUTO NEGATIVE (NEGATIVE); PROTEIN, URINE AUTO 1+ mg/dL (NEGATIVE); RBC, URINE AUTO 2 /HPF (0-3); SPECIFIC GRAVITY URINE AUTO 1.029 (1.002-1.035); SQUAMOUS EPITHELIAL CELL UR AU 11 /HPF (0-6); WBC, URINE AUTO 11 /HPF (0-3)
[2018-12-18 12:07] VITALS: BP 94/55
== END 2018-12-18 12:38 | disposition left against medical advice (07) ==
LOC: M LDO 10:14
PROVIDERS: ATTEND Obstetrics & Gynecology
DX: Z34.82 Encounter for supervision of other normal pregnancy, second trimester (principal)

== ENCOUNTER 2019-01-13 21:08 | Outpatient (CLI) | payer OTHER ==
[~2019-01-13] VITALS: Ht 165.1 cm; Wt 80.4 kg
[2019-01-13 21:32] VITALS: BP 101/58
--- NOTE | 2019-01-14 21:26 | HPE ---
DATE OF SERVICE: 01/13/2019 REASON FOR VISIT: Contractions. HISTORY OF PRESENT ILLNESS: Ms. Quintanilla is a 32-year-old 5, para 4 who presents at 35 weeks with complaints of contractions. She reports contractions started approximately an hour ago that were approximately every 7 minutes and she reports leakage of fluid for several days. She denies any vaginal bleeding, reports active movement. Her course has been unremarkable. She has care at [facility]. PAST MEDICAL HISTORY: History of asthma, depression, and anxiety. PAST SURGICAL HISTORY: History of gastric bypass. MEDICATIONS: Medications include vitamins. ALLERGIES: She has allergies to PENICILLIN. SOCIAL HISTORY: She denies any alcohol, tobacco or drug use during her . OBSTETRICAL HISTORY: She is 5 and para 4. PHYSICAL EXAMINATION: VITAL SIGNS: Stable. She is afebrile. She has category one rate tracing. heart rate 140s with moderate variability. Spontaneous accelerations, no decelerations. Irregular contractions on tocometer. ABDOMEN: Her abdomen was gravid, nontender. EXAM: Sterile speculum exam was negative for Nitrazine, negative for pooling, negative for Valsalva, negative ferning and the cervix was long and closed. A transabdominal ultrasound showed the fetus in the cephalic presentation. Amniotic fluid index (LUIZ) was 17 cm. ASSESSMENT: 1. Ms. Quintanilla is a 32-year-old 5, para 4, 35 weeks with complaints of leakage of fluid and contractions. No signs of rupture of membranes or active labor. 2. Reassuring status. PLAN: 1. Discharged home with labor precautions and kick count instructions. 2. She will follow up next week, January 17 for her obstetrical visit with Dr. Dye.
== END 2019-01-13 22:55 | disposition home or self-care (01) ==
LOC: M LDO 21:08
PROVIDERS: ATTEND Obstetrics & Gynecology
DX: O26.893 Other specified pregnancy related conditions, third trimester (principal); N89.8 Other specified noninflammatory disorders of vagina; O47.03 False labor before 37 completed weeks of gestation, third trimester; Z3A.35 35 weeks gestation of pregnancy

== ENCOUNTER 2019-01-16 16:56 | Emergency (ER) | payer OTHER ==
[~2019-01-16] VITALS: Ht 165.1 cm; Wt 81.4 kg
[2019-01-16] MEDS ORDERED: LIDOCAINE 2% MDV 20 ML VIAL SC ONE (17:45)
[2019-01-16 18:29] VITALS: BP 124/64
== END 2019-01-16 19:04 | disposition home or self-care (01) ==
LOC: M ED 16:56
DX: K02.9 Dental caries, unspecified (principal); J45.909 Unspecified asthma, uncomplicated; Z98.84 Bariatric surgery status; Z88.0 Allergy status to penicillin; Z88.1 Allergy status to other antibiotic agents; Z88.8 Allergy status to other drugs, medicaments and biological substances; Z91.018 Allergy to other foods; Z91.030 Bee allergy status; Z91.040 Latex allergy status

== ENCOUNTER → 2019-01-17 | Outpatient (REF) | payer OTHER, MEDICAID | LOC: M LAB REF 16:39 | PROVIDERS: ATTEND Obstetrics & Gynecology | DX: Z34.83 Encounter for supervision of other normal pregnancy, third trimester (principal) ==

== ENCOUNTER 2019-02-02 15:17 | Outpatient (CLI) | payer MEDICAID, OTHER ==
[~2019-02-02] VITALS: Ht 165.1 cm; Wt 81.4 kg
[2019-02-02 15:34] VITALS: BP 117/66
== END 2019-02-02 16:49 | disposition home or self-care (01) ==
LOC: M LDO 15:17
PROVIDERS: ATTEND Specialist
DX: O26.893 Other specified pregnancy related conditions, third trimester (principal); R10.30 Lower abdominal pain, unspecified; Z3A.38 38 weeks gestation of pregnancy

== ENCOUNTER 2019-02-11 14:14 | Inpatient (IN) | payer OTHER ==
[~2019-02-11] VITALS: Ht 165.1 cm; Wt 81.0 kg
[2019-02-11] VITALS (19 sets, daily range): BP systolic 113–146; BP diastolic 60–88
[2019-02-11 15:46] LABS: HEMATOCRIT 30.3 % (36.0-47.0); MEAN CORPUSCULAR HEMOGLOBIN 28.3 pg (27.0-33.0); MEAN CORPUSCULAR VOLUME 85.8 fl (80.0-96.0); PLATELET COUNT, AUTOMATED 192 10^3/uL (150-450); RED BLOOD COUNT 3.53 10^6/uL (4.00-5.40); WHITE BLOOD COUNT 6.2 10^3/uL (4.0-10.0)
[2019-02-11] MEDS ORDERED: miSOPROStol 50 MCG 1/2 TAB (S0191) PO SCH (18:00)
[2019-02-11] MEDS ORDERED: OXYTOCIN DRIP 30 UNITS in APPROPRIATE DILUENT 1 EA IV SCH (18:30)
[2019-02-11] MEDS ORDERED: LACTATED RINGER'S 1000 ML IV ONE (19:30)
[2019-02-11] MEDS ORDERED: LR 1,000 ML IV SCH (20:00)
[2019-02-11] MEDS ORDERED: FENTANYL 2MCG/ML ROPIVACAINE 0.2% IN 0.9% NACL 100ML IVBAG As Ordered ONE (20:08)
[2019-02-11] MEDS ORDERED: diphenhydrAMINE INJ 50MG/ML VIAL (J1200) IV PRN (21:00)
[2019-02-11] MEDS ORDERED: FENTANYL/ROPIVACAINE/NACL BAG 100 ML EPIDURAL SCH (21:00)
[2019-02-11] MEDS ORDERED: LACTATED RINGER'S 1000 ML IV PRN (21:00)
[2019-02-11] MEDS ORDERED: REFRIGERATOR IV KEYS XX PRN (21:00)
[2019-02-11] MEDS ORDERED: ePHEDrine SULFATE 25 MG/5 ML(5MG/ML) SYRINGE IV PRN (21:00)
[2019-02-11] MEDS ORDERED: EPIDURAL/PCA KEYS XX PRN (21:00)
[2019-02-11] MEDS ORDERED: ONDANSETRON 4MG/2ML VIAL (J2405) IV PRN (21:00)
[2019-02-11] MEDS ORDERED: NALOXONE INJ 0.4 MG/1 ML VIAL (J2310) IV PRN (21:00)
[2019-02-11] MEDS ORDERED: EPIDURAL COMMENT XX SCH (21:00)
[2019-02-12] VITALS (10 sets, daily range): BP systolic 105–120; BP diastolic 55–70
[2019-02-12] MEDS ORDERED: OXYTOCIN DRIP 30 UNITS in APPROPRIATE DILUENT 1 EA IV SCH (02:21)
[2019-02-12] MEDS ORDERED: IBUPROFEN 600 MG TAB PO PRN (02:30)
[2019-02-12] MEDS ORDERED: DOCUSATE SODIUM 100 MG CAP PO PRN (02:30)
[2019-02-12] MEDS ORDERED: IBUPROFEN 800 MG TAB PO PRN (02:30)
[2019-02-12] MEDS ORDERED: MEASLES,MUMPS,RUBELLA VACCINE INJ (MMR-II) (90707) SC SCH (02:30)
[2019-02-12] MEDS ORDERED: DIBUCAINE 1% OINTMENT 30GM TOP PRN (02:30)
[2019-02-12] MEDS ORDERED: RHOGAM 300 MCG (1500 IU) INJ (J2790) IM SCH (02:30)
[2019-02-12] MEDS ORDERED: METHYLERGONOVINE MALEATE 0.2 MG TAB PO PRN (02:30)
[2019-02-12 03:54] LABS: CORD GAS ABE V -5.5; CORD GAS HCO3 V 22.1 MEQ/L; CORD GAS O2 SAT V 34.3 %; CORD GAS PCO2 V 50.3 mmHg; CORD GAS PH V 7.261 UNITS; CORD GAS PO2 V 19.3 mmHg; CORD GAS SBC V 18.4 MEQ/L; CORD GAS TCO2 V 23.7 MEQ/L
[2019-02-12 03:55] LABS: CORD GAS ABE A -3.3; CORD GAS HCO3 A 22.6 MEQ/L; CORD GAS O2 SAT A 82.4 %; CORD GAS PCO2 A 43.6 mmHg; CORD GAS PH A 7.333 UNITS; CORD GAS PO2 A 39.9 mmHg; CORD GAS SBC A 21.3 MEQ/L
[2019-02-12] MEDS: PRENATAL VITAMINS CHEWABLE TABLET PO SCH (09:00)
[2019-02-12] MEDS: DOCUSATE SODIUM 100 MG CAP PO SCH ×2 (09:00→21:10)
--- NOTE | 2019-02-12 10:28 | HPE ---
DATE OF ADMISSION: 02/11/2019 Genesis is a 33-year-old female who is 5, para 3-1-0-4, with an estimated date of confinement (EDC) of 02/15/2019, estimated gestational age (EGA) 39-3/7 weeks gestation who is being admitted for social induction. Upon admission no bleeding or leakage of fluid. Good movement. OBSTETRIC HISTORY: Her OB history reviewed. She has had three full-term vaginal deliveries with one premature . All infants are alive and doing well. Her lab blood type is O positive, rubella immune, hepatitis negative, HIV negative, GC chlamydia negative, 1-hour sugar testing was within normal limits. Her GBS is negative. PAST MEDICAL HISTORY: Past medical history is significant for anxiety, asthma, depression irritable bowel syndrome as well as gastroesophageal reflux. History of gastric bypass in 2017. PAST SURGICAL HISTORY: The patient denies. SOCIAL HISTORY: She denies any alcohol or drug use or cigarette smoking. FAMILY HISTORY: Significant for hypertension, diabetes, kidney disease and asthma. MEDICATIONS: vitamin. ALLERGIES: PENICILLIN. PHYSICAL EXAMINATION: Obese female in no acute distress. Abdomen: Soft, nontender, nondistended. Extremities: No clubbing, cyanosis or edema. Vaginal exam: Fingertip to 1 cm, 70% effaced, fetus at-3 station, vertex position. Tracing reviewed category 1 tracing. At to the past surgical history, history of gastric bypass in 2017. ASSESSMENT: 1. Intrauterine at 39-3/7 weeks gestation. 2. History of bypass surgery being admitted for elective social induction. PLAN: Admit to labor and delivery. Induction process discussed with the patient in great detail. The decision was made to proceed with Pitocin induction followed by artificial rupture of membranes. Pain management also discussed. The patient opt for an epidural will continue to monitor. Anticipate delivery.
--- NOTE | 2019-02-12 11:07 | DN ---
DATE OF DELIVERY: 02/12/2019 Genesis is a 33-year-old female, 5, para 3-1-0-4, who was admitted at 39-3/7 weeks' gestation for a social induction. She underwent artificial rupture of membrane followed by Pitocin augmentation. She then progressed to fully dilated. After an epidural, delivered a live male in left occiput anterior position over an intact perineum. scores 9 and 9. weight 7 pounds 9 ounces. Placenta delivered spontaneously intact. Three-vessel cord. Perineum, vagina, and cervix inspected. No laceration noted. Estimated blood loss 250 mL. Both mother and baby in stable condition.
[2019-02-12] MEDS ORDERED: ADACEL/BOOSTRIX VACCINE (DIPHTH/PERTUSS/ACELL/TETANUS)0.5ML SYR (90715) IM ONE (13:00)
[2019-02-13 04:40] VITALS: BP 95/53
[2019-02-13] MEDS: PRENATAL VITAMINS CHEWABLE TABLET PO SCH (08:48)
[2019-02-13] MEDS: DOCUSATE SODIUM 100 MG CAP PO SCH ×2 (08:48→20:42)
[2019-02-13 18:00] VITALS: BP 107/55
[2019-02-14 05:18] VITALS: BP 102/55
[2019-02-14] MEDS: DOCUSATE SODIUM 100 MG CAP PO SCH (08:35)
[2019-02-14] MEDS: PRENATAL VITAMINS CHEWABLE TABLET PO SCH (08:36)
== END 2019-02-14 14:30 | disposition home or self-care (01) | DRG 560 ==
LOC: M LDI 14:14 → M OBS 02-12 05:03
PROVIDERS: ADMIT Obstetrics & Gynecology; ATTEND Obstetrics & Gynecology
PROC: 3E033VJ Introduction of Other Hormone into Peripheral Vein, Percutaneous Approach (ICD-10-PCS; 2019-02-11)
PROC: 10907ZC Drainage of Amniotic Fluid, Therapeutic from Products of Conception, Via Natural or Artificial Opening (ICD-10-PCS; 2019-02-11)
PROC: 10E0XZZ Delivery of Products of Conception, External Approach (ICD-10-PCS; principal; 2019-02-12)
DX: O80 Encounter for full-term uncomplicated delivery (principal); Z37.0 Single live birth; Z3A.39 39 weeks gestation of pregnancy

== ENCOUNTER → 2019-03-17 | Outpatient (REF) | payer OTHER | LOC: M LAB REF 10:16 | PROVIDERS: ATTEND Physician Assistant | DX: J02.9 Acute pharyngitis, unspecified (principal) ==

== ENCOUNTER 2020-04-20 19:24 | Emergency (ER) | payer MEDICAID, OTHER ==
[~2020-04-20] VITALS: Ht 165.1 cm; Wt 75.8 kg
[~2020-04-20 19:24] MED LIST changes: -OMEP40CA2 PO; +OMEP40CA97 PO
[2020-04-20 21:29] LABS: BASO % 0.4 % (0.0-1.0); EOS # 0.1 10^3/uL (0.0-0.5); EOS % 0.9 % (0.0-3.0); HEMATOCRIT 35.1 % (36.0-47.0); HEMOGLOBIN 11.4 g/dl (12.0-15.5); LYMPH # 1.9 10^3/uL (1.5-5.0); LYMPH % 28.1 % (24.0-44.0); MEAN CORPUSCULAR HEMOGLOBIN 27.7 pg (27.0-33.0); MEAN CORPUSCULAR HGB CONC 32.5 g/dl (32.0-36.5); MEAN CORPUSCULAR VOLUME 85.2 fl (80.0-96.0); MONO # 0.6 10^3/uL (0.0-0.8); MONO % 8.9 % (0.0-5.0); NEUTROPHILS # 4.2 10^3/uL (1.5-8.5); NEUTROPHILS % 61.4 % (36.0-66.0); PLATELET COUNT, AUTOMATED 236 10^3/uL (150-450); RED BLOOD COUNT 4.12 10^6/uL (4.00-5.40); WHITE BLOOD COUNT 6.8 10^3/uL (4.0-10.0)
[2020-04-20 22:01] VITALS: BP 111/64
--- NOTE | 2020-04-20 22:20 | REPVR ---
PROCEDURE INFORMATION: Exam: US First Trimester, Transabdominal Exam date and time: 04/20/2020 10:03 PM Age: 34 years old Clinical indication: Lmp or gestational age (in weeks): Edc 12/04/20, ; antepartum complications; Bleeding; ; Additional info: Bleeding at 8 wks TECHNIQUE: Imaging protocol: Real-time transabdominal obstetrical ultrasound of the maternal pelvis and a first trimester , less than 14 weeks 0 days, with image documentation. COMPARISON: No relevant prior studies available. FINDINGS: Gestation: Single gestational sac demonstrated in the uterus. Single pole in the gestational sac measures 2.4 cm. Active motion demonstrated. Embryonic/ heart rate: heart rate is 167 bpm. Placenta: Unremarkable. No subchorionic bleed. Amniotic fluid: Amniotic fluid is normal for gestational age. BIOMETRY: Gestational age (AUA): Gestational age based on crown-rump length is 9 weeks 1 day. GINA 11/22/2020. MATERNAL: Uterus: Unremarkable. Cervix: Unremarkable. Right adnexa: Unremarkable. Left adnexa: Left ovary demonstrates a simple cyst measuring 3.8 x 3.4 x 3.9 cm likely functional. Intraperitoneal space: No intraperitoneal free fluid. IMPRESSION: Unremarkable 1st trimester gestation at 9 weeks 1 day. No evidence of subchorionic hemorrhage. Normal heart rate and active motion demonstrated. Detailed structural survey can be performed between 19-20 weeks if clinically desired. Electronically signed by: Sohail Nayak On 04/20/2020 22:19:51 PM
[2020-04-21 00:08] LABS: BLOOD UREA NITROGEN 12 MG/DL (7-18); CALCIUM LEVEL 8.5 MG/DL (8.5-10.1); CARBON DIOXIDE LEVEL 22 MEQ/L (21-32); CHLORIDE LEVEL 110 MEQ/L (98-107); CREATININE FOR GFR 0.59 MG/DL (0.55-1.30); GLOMERULAR FILTRATION RATE > 60.0 (>60); GLUCOSE, FASTING 89 MG/DL (70-100); HCG, SERUM QUANTITATIVE 95137 MIU/ML; POTASSIUM SERUM 3.7 MEQ/L (3.5-5.1); SODIUM LEVEL 139 MEQ/L (136-145)
== END 2020-04-20 22:58 | disposition home or self-care (01) ==
LOC: M ED 19:24
DX: O20.0 Threatened abortion (principal); O10.011 Pre-existing essential hypertension complicating pregnancy, first trimester; Z86.718 Personal history of other venous thrombosis and embolism; Z3A.09 9 weeks gestation of pregnancy; Z88.6 Allergy status to analgesic agent; Z88.0 Allergy status to penicillin; Z88.1 Allergy status to other antibiotic agents; Z91.013 Allergy to seafood; Z91.030 Bee allergy status; Z91.040 Latex allergy status

== ENCOUNTER → 2020-05-21 | Outpatient (REF) ==
[~2020-05-21] MED LIST changes: +KEFL500C17 PO; +prenatal vit
== END ==
LOC: M LAB REF 18:04
PROVIDERS: ATTEND Obstetrics & Gynecology
DX: Z00.00 Encounter for general adult medical examination without abnormal findings (principal)

== ENCOUNTER 2020-06-16 12:17 | Emergency (ER) | payer OTHER ==
[~2020-06-16] VITALS: Ht 165.1 cm; Wt 78.6 kg
[~2020-06-16 12:17] MED LIST changes: -KEFL500C17 PO; -prenatal vit
[2020-06-16] MEDS ORDERED: prenatal vit (12:25)
--- NOTE | 2020-06-16 13:46 | REP ---
INDICATION: swelling bilat neck, difficluty swalllow, shield as . COMPARISON: Comparison soft tissue neck x-rays March 30, 2012.. TECHNIQUE: Two views. FINDINGS: Epiglottis is normal in appearance. Retropharyngeal soft tissues are not widened. The glottic and subglottic airway are intact. No bony abnormality is appreciated IMPRESSION: Normal soft tissue neck radiographs. <Electronically signed by Serg Schaeffer > 06/16/20 [id number]
[2020-06-16] MEDS ORDERED: KEFL500C17 PO (14:52)
[2020-06-16 15:01] VITALS: BP 116/65
== END 2020-06-16 15:06 | disposition home or self-care (01) ==
LOC: M ED 12:17
DX: J02.0 Streptococcal pharyngitis (principal); R68.84 Jaw pain; Z79.3 Long term (current) use of hormonal contraceptives; Z88.8 Allergy status to other drugs, medicaments and biological substances; Z88.0 Allergy status to penicillin; Z91.013 Allergy to seafood; Z91.030 Bee allergy status; Z91.040 Latex allergy status; Z88.1 Allergy status to other antibiotic agents; Z98.84 Bariatric surgery status

== ENCOUNTER 2020-08-29 13:37 | Emergency (ER) | payer OTHER ==
[~2020-08-29] VITALS: Ht 165.1 cm; Wt 79.5 kg
[~2020-08-29 13:37] MED LIST changes: +KEFL500C17 PO; +prenatal vit
[2020-08-29] MEDS ORDERED: NS 1,000 ML IV ONE (14:00)
[2020-08-29 15:00] LABS: BASO % 0.2 % (0.0-1.0); EOS % 0.7 % (0.0-3.0); HEMATOCRIT 27.4 % (36.0-47.0); HEMOGLOBIN 8.6 g/dl (12.0-15.5); LYMPH # 0.9 10^3/uL (1.5-5.0); LYMPH % 16.4 % (24.0-44.0); MEAN CORPUSCULAR HEMOGLOBIN 28.2 pg (27.0-33.0); MEAN CORPUSCULAR HGB CONC 31.4 g/dl (32.0-36.5); MEAN CORPUSCULAR VOLUME 89.8 fl (80.0-96.0); MONO # 0.4 10^3/uL (0.0-0.8); MONO % 7.3 % (0.0-5.0); NEUTROPHILS # 4.3 10^3/uL (1.5-8.5); NEUTROPHILS % 75.1 % (36.0-66.0); PLATELET COUNT, AUTOMATED 179 10^3/uL (150-450); RED BLOOD COUNT 3.05 10^6/uL (4.00-5.40); WHITE BLOOD COUNT 5.7 10^3/uL (4.0-10.0)
[2020-08-29 15:18] LABS: INR 1.1; PROTHROMBIN TIME 14.4 SECONDS (12.5-14.3)
[2020-08-29 15:43] LABS: BLOOD UREA NITROGEN 10 MG/DL (7-18); CARBON DIOXIDE LEVEL 23 MEQ/L (21-32); CHLORIDE LEVEL 109 MEQ/L (98-107); CK-MB VALUE MASS < 1.0 NG/ML (<3.6); CPK CREATINE PHOSPHOKINASE 42 U/L (26-192); CREATININE FOR GFR 0.59 MG/DL (0.55-1.30); GLOMERULAR FILTRATION RATE > 60.0 (>60); GLUCOSE, FASTING 75 MG/DL (70-100); MB/CK RELATIVE INDEX 2.38 (< OR =4); POTASSIUM SERUM 3.9 MEQ/L (3.5-5.1); SODIUM LEVEL 139 MEQ/L (136-145); TROPONIN I < 0.02 NG/ML (< 0.10)
--- NOTE | 2020-08-29 16:58 | REP ---
INDICATION: R/O BLEED COMPARISON: None. TECHNIQUE: Transabdominal obstetrical ultrasound with color Doppler evaluation. FINDINGS: Limited obstetrical examination demonstrates a single live intrauterine in transverse (head to maternal right) presentation. motion is identified by technologist. Placenta is noted right lateral and grade 1 without evidence for placenta previa or abruption. Amniotic fluid volume is normal. Cervix measures 4.4 cm in length and appears closed. LUIZ: 18.5 cm FHR equals 152 beats per minute. Umbilical artery SD ratio: 2.77 IMPRESSION: Single live intrauterine in transverse lie. Amniotic fluid index is normal. Cervix appears closed. <Electronically signed by Poncho Valencia > 08/29/20 [id number]
--- NOTE | 2020-08-29 18:20 | ECGEPIP ---
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
[2020-08-29 18:42] VITALS: BP 108/56
== END 2020-08-29 19:00 | disposition home or self-care (01) ==
LOC: EDBD 13:37 → M ED 13:37
DX: O26.90 Pregnancy related conditions, unspecified, unspecified trimester (principal); O99.019 Anemia complicating pregnancy, unspecified trimester; O99.840 Bariatric surgery status complicating pregnancy, unspecified trimester; O09.529 Supervision of elderly multigravida, unspecified trimester; Z88.6 Allergy status to analgesic agent; Z88.0 Allergy status to penicillin; Z88.1 Allergy status to other antibiotic agents; Z91.013 Allergy to seafood; Z91.030 Bee allergy status; Z91.040 Latex allergy status

== ENCOUNTER 2020-09-15 09:10 | Outpatient (CLI) | payer OTHER ==
[~2020-09-15] VITALS: Ht 165.1 cm; Wt 81.8 kg
[~2020-09-15 09:10] MED LIST changes: +IRON SUCROSE 300 MG in NS 250 ML OVER 90 MIN. IV ONE
[2020-09-15 09:23] VITALS: BP 126/60
[2020-09-15 10:27] VITALS: BP 116/64
[2020-09-15 11:23] VITALS: BP 115/63
[2020-09-15 12:25] VITALS: BP 120/65
== END 2020-09-15 13:15 | disposition home or self-care (01) ==
LOC: M INFU 09:10
PROVIDERS: ATTEND Obstetrics & Gynecology
DX: O99.013 Anemia complicating pregnancy, third trimester (principal); Z3A.29 29 weeks gestation of pregnancy
CPT/HCPCS: 96365; 96366; J1756

== ENCOUNTER 2020-09-22 09:16 | Outpatient (CLI) | payer OTHER ==
[~2020-09-22] VITALS: Ht 165.1 cm; Wt 81.8 kg
[2020-09-22 09:28] VITALS: BP 118/69
[2020-09-22 11:15] VITALS: BP 119/62
[2020-09-22 13:00] VITALS: BP 115/55
== END 2020-09-22 13:00 | disposition home or self-care (01) ==
LOC: M INFU 09:16
PROVIDERS: ATTEND Obstetrics & Gynecology
DX: D50.9 Iron deficiency anemia, unspecified (principal); Z88.0 Allergy status to penicillin; Z88.1 Allergy status to other antibiotic agents; Z88.6 Allergy status to analgesic agent; Z88.8 Allergy status to other drugs, medicaments and biological substances; Z91.040 Latex allergy status; Z91.030 Bee allergy status; Z91.013 Allergy to seafood
CPT/HCPCS: 96365; 96366; J1756

== ENCOUNTER 2020-09-29 11:37 | Outpatient (CLI) | payer OTHER ==
[~2020-09-29] VITALS: Ht 165.1 cm; Wt 81.8 kg
[2020-09-29 11:40] VITALS: BP 119/60
[2020-09-29 13:00] VITALS: BP 134/80
[2020-09-29 14:30] VITALS: BP 109/59
[2020-09-29 15:20] VITALS: BP 109/56
== END 2020-09-29 15:20 | disposition home or self-care (01) ==
LOC: M INFU 11:37
PROVIDERS: ATTEND Obstetrics & Gynecology
DX: D64.9 Anemia, unspecified (principal); Z88.0 Allergy status to penicillin; Z88.1 Allergy status to other antibiotic agents; Z88.6 Allergy status to analgesic agent; Z88.8 Allergy status to other drugs, medicaments and biological substances; Z91.040 Latex allergy status
CPT/HCPCS: 96365; 96366; J1756

== ENCOUNTER 2020-10-13 14:54 | Outpatient (CLI) | payer OTHER ==
[~2020-10-13] VITALS: Ht 165.1 cm; Wt 86.5 kg
[~2020-10-13 14:54] MED LIST changes: -IRON SUCROSE 300 MG in NS 250 ML OVER 90 MIN. IV ONE
[2020-10-13] MEDS ORDERED: PREN1CHW6 PO (15:15)
[2020-10-13] MEDS ORDERED: LACTATED RINGER'S 1000 ML IV ONE (15:30)
--- NOTE | 2020-10-13 16:20 | IPNPDOC ---
Obstetrical Progress Note Date of Service Oct 13, 2020 Subjective 34 yo at 34w2d with GINA of 22 NOV 2020 presents to L&D with complaints of pelvic pressure, especially when standing. She reports lyndsey abad contractions. She denies leaking of fluid, vaginal bleeding, and reports positive movement. She reports that at times she becomes dizzy and has received iron infusions x3. She admits that she does not eat on a regular base and the last time she ate was yesterday and it was orange juice. Objective Sterile speculum exam with no pooling of fluid noted in the vaginal vault. Vulvar varicosities noted. Cervix appears closed by speculum exam. Assessment: Vulvar varicosities Grand multiparity Hx of bariatric surgery Assessment Heart Rate (FHR): 135 Variability: Moderate Accelerations: Present Decelerations: None Tocometer Contractions: No (Uterine irritability noted) Sterile Vaginal Examination Dilation: None Effacement (%): other (thick) Station: -3 Cervical Consistency: Medium Cervical Position: Posterior Postion/Presentation: Cephalic presentation Assessment and Plan Age: 34 : 6 Term: 4 Pre-term: 1 Abortions: 0 Livin EGA at Admission: 34 (+2) Weeks & Days 34w2d Status: Reassuring Anticipate: Other (Discharge to home, certified not in labor) Additional Comments Recommended to eat small meals every 2-3 hours with foods higher in protein Recommended to trial snacking on protein bars Recommended to increase water intake to 3-4 liters per day Recommended a V2 supporter and maternity belt Keep all future appointments with [facility] [place] [facility] Return to L&D if symptoms worsen or persist GOLDEN CONWAY CNM Oct 13, 2020 16:20
== END 2020-10-13 16:25 | disposition home or self-care (01) ==
LOC: M LDO 14:54
PROVIDERS: ATTEND Registered Nurse Maternal Newborn
DX: O26.893 Other specified pregnancy related conditions, third trimester (principal); Z3A.34 34 weeks gestation of pregnancy
CPT/HCPCS: 59025; G0378; G0463

== ENCOUNTER 2020-10-23 22:30 | Outpatient (CLI) | payer OTHER ==
[~2020-10-23] VITALS: Ht 165.1 cm; Wt 81.8 kg
[~2020-10-23 22:30] MED LIST changes: +PREN1CHW6 PO
[2020-10-23 22:40] VITALS: BP 113/70
--- NOTE | 2020-10-23 22:50 | IPNPDOC ---
Text Note Date of Service The patient was seen on 10/23/20. NOTE 10/22/20 2238 34 yo LMP UNSURE EDC 11/22/20 AT 35.5 WEEKS CAME IN STATING SHE NEEDS TO PUSH NO VAGINAL BLEEDING NO VAGINAL DISCHARGE . PELVIC EXAM HIGH PRESENTING PART VERTEX 2 CM SOFT POSTERIOR , CATAGORY 1 STRIP 1 CONTRACTION. PAST HISTORY 2008 34 WEEKS SCD 5 LBS 15 OZ 2012 40 WEEKS 7 LBS 9 0Z 2013 40 WEEKS 7LBS 13 OZ 2015 40 WEEKS 9 LBS 8 OZ 2019 39 WEEKS UNKNOWN WEIGHT PLAN OF CARE REEXAMINE 2 HOURS IF NO CHANGE DISCHARGE F/UP OFFICE VISIT VS, Cristiana, I+O Vital Signs Date Time Temp Pulse Resp B/P (MAP) Pulse Ox O2 Delivery O2 Flow Rate FiO2 10/23/20 22:40 98.2 89 18 113/70 (84) Chad Sahni MD Oct 23, 2020 22:48
--- NOTE | 2020-10-24 00:26 | IPNPDOC ---
Text Note Date of Service The patient was seen on 10/24/20. NOTE reviewed no change in cervix no contractions catagory 1 strip discharged with instructions appointment 10/28/2020 discharged undelivered . VS,Fishbone, I+O VS, Fishbone, I+O Vital Signs Date Time Temp Pulse Resp B/P (MAP) Pulse Ox O2 Delivery O2 Flow Rate FiO2 10/23/20 22:40 98.2 89 18 113/70 (84) Chad Sahni MD Oct 24, 2020 00:26
== END 2020-10-24 00:36 | disposition home or self-care (01) ==
LOC: M LDO 22:30
PROVIDERS: ATTEND Obstetrics & Gynecology
DX: O26.893 Other specified pregnancy related conditions, third trimester (principal); Z3A.35 35 weeks gestation of pregnancy
CPT/HCPCS: 59025; G0378; G0463

== ENCOUNTER 2020-11-03 09:21 | Outpatient (CLI) | payer OTHER ==
[~2020-11-03] VITALS: Ht 165.1 cm; Wt 81.1 kg
[2020-11-03 10:07] VITALS: BP 129/71
[2020-11-03] MEDS ORDERED: IRON SUCROSE 300 MG in NS 250 ML OVER 90 MIN. IV ONE (12:00)
[2020-11-03 12:19] VITALS: BP 131/79
== END 2020-11-03 12:35 | disposition home or self-care (01) ==
LOC: M INFU 09:21
PROVIDERS: ATTEND Obstetrics & Gynecology
DX: O99.013 Anemia complicating pregnancy, third trimester (principal); Z3A.36 36 weeks gestation of pregnancy
CPT/HCPCS: 96365; 96366; J1756

== ENCOUNTER 2020-11-06 11:17 | Outpatient (CLI) | payer OTHER ==
[~2020-11-06] VITALS: Ht 165.1 cm; Wt 86.6 kg
[2020-11-06 11:38] VITALS: BP 106/68
[2020-11-06 12:12] VITALS: BP 92/47
[2020-11-06 12:19] VITALS: BP 99/57
--- NOTE | 2020-11-06 12:35 | IPNPDOC ---
Obstetrical Progress Note Date of Service Nov 06, 2020 Subjective 34 yo at 37w5d with GINA of 22 NOV 2020 presents to L&D with complaints of rectal pressure, abdominal pain, and diarrhea for the last 24 hours and that she felt like she had to push so she sat on the toilet and was straining and then she felt that her hemorrhoids "popped out". She reports that she hydrates well, however her urine is dark byron yellow, after the color of the urine was addressed with the patient, she admitted that she does attempt to hydrate well. She reports lyndsey abad contractions. She denies vaginal bleeding, leaking of fluid, and reports positive movement. Objective Vital Signs Date Time Temp Pulse Resp B/P (MAP) Pulse Ox O2 Delivery O2 Flow Rate FiO2 11/06/20 11:38 97.7 77 18 106/68 (81) 100 Room Air Sterile speculum exam with no pooling of fluid or discharge noted in the vaginal vault and cervix appears long, thick, and approximately 2 cm by visual exam. Cervical exam: , no change from exam on 10/23/2020 Hemorrhoids noted and inflamed, no thrombosed hemorrhoids noted Assessment: Gastroenteritis Dehydration Hemorrhoids Vulvar varicosities Assessment Heart Rate (FHR): 135 Variability: Moderate Accelerations: Positive Decelerations: None Tocometer Contractions: Yes (x1 noted) Sterile Vaginal Examination Dilation: 2cm Effacement (%): 30% Station: -3 Cervical Consistency: Firm Cervical Position: Posterior Postion/Presentation: Cephalic presentation Assessment and Plan Age: 34 : 6 Term: 4 Pre-term: 1 Abortions: 0 Livin Weeks & Days 37w5d Status: Reassuring Anticipate: Other (Discharge to home, certified not in labor) Additional Comments Recommended for metamucil BID, continue to use V2 supporter, preparation H, and witch haris pads Recommended to hydrate well with 3-4 liters of water per day Recommended to keep all appointments at [facility] Labor precautions discussed Return to L&D if symptoms persist or worsen Spent 20 minutes of face to face time to assess, discuss plan, and discharge GOLDEN CONWAY CNM Nov 06, 2020 12:35
== END 2020-11-06 12:25 | disposition home or self-care (01) ==
LOC: M LDO 11:17
PROVIDERS: ATTEND Obstetrics & Gynecology
DX: O22.43 Hemorrhoids in pregnancy, third trimester (principal); Z3A.37 37 weeks gestation of pregnancy; O26.893 Other specified pregnancy related conditions, third trimester; R10.9 Unspecified abdominal pain; O99.613 Diseases of the digestive system complicating pregnancy, third trimester; K52.9 Noninfective gastroenteritis and colitis, unspecified; O99.283 Endocrine, nutritional and metabolic diseases complicating pregnancy, third trimester; E86.0 Dehydration; O22.13 Genital varices in pregnancy, third trimester
CPT/HCPCS: 59025; G0378; G0463

== ENCOUNTER 2020-11-20 19:47 | Inpatient (IN) | payer OTHER ==
[2020-11-20] VITALS (7 sets, daily range): BP systolic 110–137; BP diastolic 58–78
[~2020-11-20] VITALS: Ht 165.1 cm; Wt 85.6 kg
[2020-11-20] MEDS ORDERED: OXYTOCIN DRIP 30 UNITS in IV 1 EA IV PRN (19:55)
[2020-11-20] MEDS ORDERED: LIDOCAINE 1% MDV 20ML VIAL INFIL PRN (19:55)
--- NOTE | 2020-11-20 20:14 | HPEPDOC ---
Obstetrical History & Physical General Date of Admission Nov 20, 2020 at 19:47 History of Present Illness Ms. Jacob is a 35yo at 39+5 by 10wk US presents for IOL for AMA. Today she denied VB, LOF, decreased FM, or regular painful contractions. She denied n/v/d, cp, sob, parekh, visual changes, f/c, urinary sx. Antepartum Course Pre- weight (lbs.): 160 Admission Weight (lbs.): 190 Change in Weight (lbs.): 30 Past Medical History Past Obstetrical History : Past Obstetrical History: Multigravida (G1 2005 39wk GDM. G2 2008 34wk 5#15 PTL. G3 2012 40wk 7#9. G4 2013 40wk 7#13. G6 2015 40wk 9#8. G6 2018 39wk GDM.) Past Medical History Medical History denied Surgical History: Other (gastric bypass) Family History Significant Family History: No pertinent family hx Social History Marital Status: Family situation: Spouse/partner home Psychosocial History: Depression * Smoker: non-smoker Alcohol: Denies Drugs: denies Imunizations Tdap status: declined Influenza Status: declined Allergies Coded Allergies: acetaminophen (Verified Allergy, Severe, THROAT CLOSES, 10/13/20) diphenhydramine (Verified Allergy, Severe, THROAT CLOSES, 10/13/20) erythromycin base (Verified Allergy, Severe, FACIAL SWELLING, 10/13/20) Penicillins (Verified Allergy, Mild, RASH, 10/13/20) clindamycin (Verified Allergy, Mild, RASH ON HANDS, 10/13/20) latex (Verified Allergy, Mild, RASH, 10/13/20) Shrimp (Unverified Allergy, Unknown, 10/13/20) bee venom protein (honey bee) (Unverified Allergy, Unknown, 10/13/20) NSAIDS (Non-Steroidal Anti-Inflamma (Verified Adverse Reaction, Unknown, 10/13/20) GASTRIC BYPASS (MAY 2017) Medications Scheduled Vit37/Iron/Folic Acid (Prenata Chewable Tablet) 1 Each Tab.chew, 1 TAB PO DAILY Miscellaneous Medications [ vit] Physical Examination Physical Examination GENERAL: Alert and oriented times three. BREAST: . ABDOMEN: Gravid and non-tender to touch. FETUS: Is vertex (VTX) by sterile vaginal examination (SVE), fetus is vertex (VTX) by US HEART RATE: Regular rate and rhythm. LUNGS: Clear to auscultation (CTA). EXTREMITIES: No edema. No clonus. Laboratory Data Urine Culture: No Growth Pertinent Laboratoy Data Blood Type: O+ RBC Antibody Screen: Negative HIV: Negative Hepatitis B: Negative Rapid Plasma Reagin: Nonreactive Rubella: Immune Varicella: Immune Chlamydia/Gonorrhea: Negative Group B Streptococcus: Negative Quad Screen Test: Declined Cystic Fibrosis: Negative Anatomy Ultrasound Placenta Location: Posterior Normal Anatomy: Yes Vaginal Examination Dilation: 4 cm Effacement: 50% Station: -3 Cervical Consistency: Soft Cervical Position: Posterior Presentation: Cephalic presentation (by US) Assessment Heart Rate (FHR): 120 Variability: Moderate Accelerations: Positive Decelerations: None Tocometer Contractions: Yes Frequency: irregular Multi-drug resistant Organism: No history of MDRO Assessment/Plan Assessment Ms. Jacob is a 35yo at 39+5 by 10wk US presents for IOL for AMA. VS normal. CAT I tracing reactive. SVE /-2. Plan for IOL with pitocin. APC 1. history of PTD at 34wk in G1 followed by 4 term deliveries 2. A1GDM - will obtain BG FS on admit 3. history of depression currently stable 4. gastric bypass 5. iron deficiency anemia 6. pap smear MAY 2020 without TZ in sample, plan for pap PP Rh pos, GBS neg, ceph by US, EFW 3300g, placenta posterior, PP 9#8 Plan Admit and orient. Medical Assistant Float and consent. Diet: clears Group B Streptococcus (GBS) [negative]. Labs and intravenous (IV) per unit protocol. Counseled on Pitocin and induction of labor (IOL). Lactated Ringers (LR): PRN Anticipate [normal spontaneous delivery ()]. C-S as appropriate. MANSOOR SWANN DO Nov 20, 2020 20:14
[2020-11-20] MEDS ORDERED: OXYTOCIN DRIP 30 UNITS in IV 1 EA IV SCH (20:55)
[2020-11-20 21:31] LABS: HEMATOCRIT 33.8 % (36.0-47.0); HEMOGLOBIN 11.1 g/dl (12.0-15.5); MEAN CORPUSCULAR HEMOGLOBIN 29.4 pg (27.0-33.0); MEAN CORPUSCULAR HGB CONC 32.8 g/dl (32.0-36.5); MEAN CORPUSCULAR VOLUME 89.7 fl (80.0-96.0); PLATELET COUNT, AUTOMATED 193 10^3/uL (150-450); RED BLOOD COUNT 3.77 10^6/uL (4.00-5.40); WHITE BLOOD COUNT 7.2 10^3/uL (4.0-10.0)
[2020-11-21] VITALS (27 sets, daily range): BP systolic 99–157; BP diastolic 56–92
[2020-11-21] MEDS ORDERED: FENTANYL 2MCG/ML ROPIVACAINE 0.2% IN 0.9% NACL 100ML IVBAG As Ordered ONE (00:22)
--- NOTE | 2020-11-21 01:28 | IPNPDOC ---
Obstetrical Progress Note Date of Service Nov 21, 2020 Subjective Patient received epidural. Routine assessment. No acute concerns. Assessment Heart Rate (FHR): 130 Variability: Increased Accelerations: Positive Decelerations: None Heart Rate Tracing: Category II Tocometer Contractions: Yes Frequency: regular Sterile Vaginal Examination Dilation: 5 cm Effacement (%): 70% Station: -2 Cervical Consistency: Medium Cervical Position: Middle Postion/Presentation: Cephalic presentation (by exam) Assessment and Plan Anticipate: Vaginal Delivery Additional Comments To room for assessment after epidural. Patient was 5/75/-2. The hand was palpated to the left of the head and was pushed from the pelvic brim followed by rupture of membranes. Exam after rupture performed confirming hand remained outside of pelvis. Currently with intermittent marked variability. Overall has accelerations and no decelerations. This is overall reassuring as the patient is multiperous and is progressing. Will continue to closely monitor. MANSOOR SWANN DO Nov 21, 2020 01:28
[2020-11-21] MEDS ORDERED: ONDANSETRON 4MG/2ML VIAL IV PRN (02:15)
[2020-11-21] MEDS ORDERED: LACTATED RINGER'S 1000 ML IV PRN (02:15)
[2020-11-21] MEDS ORDERED: ePHEDrine SULFATE 25 MG/5 ML(5MG/ML) SYRINGE IV PRN (02:15)
[2020-11-21] MEDS ORDERED: EPIDURAL/PCA KEYS XX PRN (02:15)
[2020-11-21] MEDS ORDERED: REFRIGERATOR IV KEYS XX PRN (02:15)
[2020-11-21] MEDS ORDERED: EPIDURAL COMMENT XX SCH (02:15)
[2020-11-21] MEDS ORDERED: FENTANYL/ROPIVACAINE/NACL BAG 100 ML EPIDURAL SCH (02:15)
[2020-11-21] MEDS ORDERED: NALOXONE INJ 0.4MG/1ML VIAL (J2310 PER 1MG) IV PRN (02:15)
[2020-11-21] MEDS: LR 1,000 ML IV SCH ×2 (02:17→02:25)
[2020-11-21 04:26] LABS: CORD GAS ABE V -3.5; CORD GAS O2 SAT V 88.4 %; CORD GAS PCO2 V 41.4 mmHg; CORD GAS PH V 7.344 UNITS; CORD GAS PO2 V 45.7 mmHg; CORD GAS SBC V 21.4 MEQ/L; CORD GAS TCO2 V 23.3 MEQ/L
[2020-11-21] MEDS ORDERED: OXYTOCIN DRIP 30 UNITS in IV 1 EA IV SCH (04:26)
--- NOTE | 2020-11-21 04:26 | DNPDOC ---
[facility] Delivery Note Delivery Note DATE OF DELIVERY: 11/21/20 PREDELIVERY DIAGNOSIS: 39+6/7 weeks' gestation and labor, A1GDM, history of gastric bypass, iron deficiency anemia POST DELIVERY DIAGNOSIS: same PROCEDURE: Spontaneous vaginal delivery ORE SMELTER: Dr. Ramirez Swann DO ANESTHESIA: epidural ESTIMATED BLOOD LOSS: 100 mL. FINDINGS: 3620g, Score 9/9, nuchal cord times 0. DELIVERY SUMMARY: Ms. Jacob is a 35yo at 39+5 by 10wk US presented for induction for advanced maternal age. With the aid of pitocin she progressed to C/C/+2 and with good maternal effort delivered the baby in the LAUREN position followed by the body without difficulty. The baby had spontaneous movement and cry. The cord clamping was delayed 1 minute and then cut by the father of the baby. The cord blood and gasses were obtained. The placenta was delivered with g entile downward traction and was inspected to be intact. The uterus was firm, bleeding was scant, and there were no lacerations. The sponge, lap, and needle counts were correct. No complications. RAMIREZ SWANN DO Nov 21, 2020 04:25
[2020-11-21 04:27] LABS: CORD GAS ABE A 0.6; CORD GAS HCO3 A 26.2 MEQ/L; CORD GAS O2 SAT A 77.2 %; CORD GAS PCO2 A 47.4 mmHg; CORD GAS PH A 7.36 UNITS; CORD GAS PO2 A 40.3 mmHg; CORD GAS SBC A 24.8 MEQ/L; CORD GAS TCO2 A 27.6 MEQ/L
[2020-11-21] MEDS ORDERED: DOCUSATE SODIUM 100MG CAPSULE PO PRN (04:30)
[2020-11-21] MEDS ORDERED: DIBUCAINE 1% OINTMENT 30GM TOP PRN (04:30)
[2020-11-21] MEDS: PRENATAL VITAMINS CHEWABLE TABLET PO SCH (09:44)
[2020-11-21] MEDS: traMADol 50 MG TAB PO PRN ×2 (09:53→17:05)
[2020-11-22] MEDS: traMADol 50 MG TAB PO PRN (00:46)
[2020-11-22] MEDS ORDERED: oxyCODONE 5MG TAB PO PRN (05:10)
--- NOTE | 2020-11-22 05:16 | IPNPDOC ---
Progress Note Date of Service: Nov 22, 2020 Day#: 1 Progress Note SUBJECT: Genesis is a 35o s/p , doing well day # 1. She has been ambulating but endorses difficulty to significant right hip pain that developed after delivery, voiding spontaneously without issue and tolerating regular diet. Breast feeding without issue. Reports lochia is decreasing. She reports difficulty with finding position of comfort and has been taking tramadol for pain control. OBJECTIVE: VITAL SIGNS: Within normal limits, afebrile. Heart rate: Regular rate and rhythm, no murmurs, rubs or gallops. Abdomen: Fundus firm at U-2. Soft, NTTP. ASSESSMENT: Genesis is a 35o s/p , doing well day # 1. Vitals within normal limits, afebrile, hemodynamically stable with no evidence of infection. PLAN: 1. Discharge to home tomorrow 2. Tylenol, Motrin, and OxyIR for pain. 3. Encourage breast feeding with consult 4. PT referral for right hip pain - will give oxy IR for pain control and d/c tramadol due to patient 5. Routine PP visit in 6 weeks in clinic. 6. Discussed return precautions at length. VS, I&O, 24H, Fishbone Vital Signs/I&O Vital Signs Date Time Temp Pulse Resp B/P (MAP) Pulse Ox O2 Delivery O2 Flow Rate FiO2 11/22/20 01:30 18 11/21/20 18:00 97.8 68 101/57 (72) 98 Room Air I&O- Last 24 Hours up to 6 AM 11/22/20 06:00 Intake Total 4182 ml Output Total 400 ml Balance 3782 ml ADAMA JUDD DO Nov 22, 2020 05:16
[2020-11-22 06:15] VITALS: BP 119/65
[2020-11-22] MEDS: PRENATAL VITAMINS CHEWABLE TABLET PO SCH (08:48)
[2020-11-22] MEDS ORDERED: ACETAMINOPHEN 500 MG TAB PO PRN (12:50)
--- NOTE | 2020-11-22 13:26 | IPNPDOC ---
Text Note Date of Service The patient was seen on 11/22/20. NOTE Patient was seen by PT who recommended walker to assist in ambulation and outpatient PT if no improvement in her pain in one week attributing her right hip pain to inflammation in the joint from delivery. Patient reports her grandmother has one and declines need for prescription. She also clarifies she is not allergic to tylenol but to codeine and requests tylenol. Order placed for tylenol as first line pain medication. She requests discharge home today as infant is being discharged. Return precautions reviewed. VS,Fishbone, I+O VS, Fishbone, I+O Vital Signs Date Time Temp Pulse Resp B/P (MAP) Pulse Ox O2 Delivery O2 Flow Rate FiO2 11/22/20 09:30 16 Room Air 11/22/20 06:15 97.9 67 119/65 (83) 11/21/20 18:00 98 I&O- Last 24 Hours up to 6 AM 11/22/20 06:00 Intake Total 4182 ml Output Total 400 ml Balance 3782 ml ADAMA JUDD DO Nov 22, 2020 13:26
== END 2020-11-22 15:15 | disposition home or self-care (01) | DRG 807 ==
LOC: M LDI 19:47 → M OBS 11-21 06:15
PROVIDERS: ADMIT Obstetrics & Gynecology; ATTEND Obstetrics & Gynecology
PROC: 3E033VJ Introduction of Other Hormone into Peripheral Vein, Percutaneous Approach (ICD-10-PCS; 2020-11-20)
PROC: 10E0XZZ Delivery of Products of Conception, External Approach (ICD-10-PCS; principal; 2020-11-21)
DX: O99.02 Anemia complicating childbirth (principal); Z37.0 Single live birth; Z3A.39 39 weeks gestation of pregnancy; Z88.8 Allergy status to other drugs, medicaments and biological substances; Z88.0 Allergy status to penicillin; Z91.040 Latex allergy status; Z91.013 Allergy to seafood; Z91.030 Bee allergy status; Z88.6 Allergy status to analgesic agent; D50.9 Iron deficiency anemia, unspecified; O09.523 Supervision of elderly multigravida, third trimester; O24.419 Gestational diabetes mellitus in pregnancy, unspecified control

== ENCOUNTER 2023-06-24 14:08 | Emergency (ER) | payer OTHER ==
[~2023-06-24] VITALS: Ht 165.1 cm; Wt 79.7 kg
[2023-06-24 14:08] VITALS: BP 123/72; TEMP 98.6; O2SAT 97
[~2023-06-24 14:08] MED LIST changes: +ALBU2.5V10 INH; -ALBU20IN NEB; +ALBU5SOL7 NEB; -ALBU83IN INH; +OMEP40CA4 PO; -OMEP40CA97 PO
== END 2023-06-24 14:35 | disposition left against medical advice (07) ==
LOC: M ED 14:08
DX: Z53.21 Procedure and treatment not carried out due to patient leaving prior to being seen by health care provider (principal)